=== PATIENT | female | born 1975 | race Caucasian/White ===

== ENCOUNTER 2016-12-15 02:50 | Emergency (ER) | payer MEDICAID ==
--- NOTE | 2016-12-15 03:31 | EDM.PDOC ---
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, does turn to right and left to [employer] 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 has had 12 fills of controlled meds in 2017 has been using Skelaxan 800 mg TID, ibuprofen 200 mg 4 tabs tid, warm soaks says she has gotten no relief and the pain is 10/10 yet repeated lies, sits and turns in exam room without limitation or evidence of pain has not used a back brace, not using APAP sleeps on a soft matress - Related Data Allergies/ADRs: Allergies Allergy/AdvReac Type Severity Reaction Status Date / Time No Known Allergies Allergy Verified 12/15/16 02:57 Home Meds: Home Meds buPROPion [Wellbutrin] 200 mg PO DAILY 08/21/13 [History] risperiDONE [Risperdal] 3 mg PO BEDTIME 08/21/13 [History] Escitalopram [Lexapro] 10 mg PO DAILY 01/08/16 [History] Past Medical History HEENT History: Reports: Allergic rhinitis, Sinusitis Cardiovascular History: Reports: None Respiratory History: Reports: Asthma Gastrointestinal History: Reports: GERD, Other (see below) Other Gastrointestinal History: intussuception 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: Dysfunctional uterine bleeding, Fibroids, Polycystic Ovaries Other OB/BYN History: ADDISON, LSO, CYSTOSCOPY Musculoskeletal History: Reports: Back pain, chronic, Other (see below) Other Musculoskeletal History: degenerative thoracic intervertebral disc Neurological History: Reports: None Psychiatric History: Reports: Anxiety, Depression Endocrine/Metabolic History: Reports: None Hematologic History: Reports: None Immunologic History: Reports: None Oncologic (Cancer) History: Reports: None Dermatologic History: Reports: None - Infectious Disease History Infectious Disease History: Reports: Chicken pox, Measles - Past Surgical History Head Surgeries/Procedures: Reports: None GI Surgical History: Reports: Cholecystectomy Female Surgical History: Reports: Breast implant, Hysterectomy, Salpingo- oophorectomy, Tubal ligation, Other (see below) Other Female Surgeries/Procedures: CERVICAL CRYOSURGERY Social & Family History - Family History Family Medical History: Noncontributory - Tobacco Use Smoking Status *Q: Current Every Day Smoker Years of Tobacco use: 25 Packs/Tins Daily: 1 Used Tobacco, but Quit: No Second Hand Smoke Exposure: Yes - Caffeine Use Caffeine Use: Reports: Coffee, Soda, Tea - Alcohol Use Days Per Week of Alcohol Use: 1 Number of Drinks Per Day: 2 Total Drinks Per Week: 2 - Recreational Drug Use Recreational Drug Use: No Drug Use in Last 12 Months: No ED ROS GENERAL - Review of Systems Review Of Systems: See Below Constitutional: Reports: no symptoms Respiratory: Reports: no symptoms Cardiovascular: Reports: No symptoms Endocrine: Reports: no symptoms GI/Abdominal: Reports: No symptoms : Reports: no symptoms Musculoskeletal: Reports: back pain Skin: Reports: no symptoms Neurological: Reports: no symptoms Psychiatric: Reports: No symptoms Hematologic/Lymphatic: Reports: no symptoms Immunologic: Reports: no symptoms ED EXAM, UPPER BACK/NECK PAIN - Physical Exam Exam: See Below Exam Limited By: No limitations General Appearance: alert, WD/WN, no apparent distress Head Exam: atraumatic, normocephalic Neck Exam: non-tender, full range of motion, normal alignment, normal inspection GI/Abdominal: soft, non tender, no distention Back Exam: other (good ROM, no spasm, slight tender over lower thoracic spine in midline, not localized, moves easily, lies and sits easily without hesitation ) Extremities: normal inspection, normal range of motion Neurologic: no motor/sensory deficits, alert, normal mood/affect, oriented x 3 Psychiatric: normal affect, normal mood Skin Exam: Normal color, Warm/dry Lymphatic: no adenopathy Course - Vital Signs Last Recorded V/S: Last Vital Signs Temp 36.5 C 12/15/16 02:59 Pulse 103 H 12/15/16 02:59 Resp 20 12/15/16 02:59 BP 141/76 H 12/15/16 02:59 Pulse Ox 99 12/15/16 02:59 Departure - Departure Time of Disposition: 03:34 Disposition: Home, Self-Care 01 Condition: good Clinical Impression: Overuse syndrome, Chronic back pain Instructions: Chronic Back Pain Forms: ED Department Discharge Additional Instructions: Continue with the ibuprofen 200 mg 4 tabs 3 times a day and the Skelaxin 800 mg 1 tab 3 times a day. Also take acetaminophen 325 mg 2 tabs 3-4 times a day. Using heating pad 15 minutes 4 times a day. Sleep on a firm mattress. Use a flexible back support while working and at home. Check back with Dr Guzman today or tomorrow.
== END 2016-12-15 03:45 | disposition home or self-care (01) ==
LOC: FB.ED 02:50
CPT/HCPCS: 99283

== ENCOUNTER 2017-04-09 08:47 | Emergency (ER) | payer MEDICAID ==
[2017-04-09 09:08] VITALS: BP 118/68
[2017-04-09] MEDS ORDERED: Ketorolac 30 MG/ML SDV IM ONE (09:22)
[2017-04-09] MEDS ORDERED: Acetaminophen/oxyCODONE 325-5 MG Tab PO ONE (09:22)
--- NOTE | 2017-04-09 09:41 | EDM.PDOC ---
ED HPI GENERAL MEDICAL PROBLEM - General Chief Complaint: Lower Extremity Injury/Pain Stated Complaint: LEFT HIP AND LEG PAIN Time Seen by Provider: 04/09/17 09:20 Source of Information: Reports: Patient, Old Records History Limitations: Reports: No Limitations - History of Present Illness INITIAL COMMENTS - FREE TEXT/NARRATIVE: 41 yo female here with left low back pain. Has a hx of chronic low back pain, but this is different. Says pain shoots down her left leg. Pain increases with coughing. 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 No incontinence. Had an MRI of her lumbar spine in that showed no bulging discs and only mild degen changes. Took ibuprofen today without relief. 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 Left Leg Pain Score (Numeric/FACES): 9 - Related Data Allergies Allergy/AdvReac Type Severity Reaction Status Date / Time No Known Allergies Allergy Verified 04/09/17 09:03 Home Meds: Home Meds buPROPion [Wellbutrin] 200 mg PO DAILY 08/21/13 [History] risperiDONE [Risperdal] 3 mg PO BEDTIME 08/21/13 [History] Escitalopram [Lexapro] 10 mg PO DAILY 01/08/16 [History] Acetaminophen/HYDROcodone [[place] 325-5 MG] 1 - 2 tab PO Q4H PRN #14 tab [Rx] Carisoprodol [Soma] 350 mg PO QID PRN #14 tab 04/09/17 [Rx] Gabapentin [Neurontin] 300 mg PO QID 04/09/17 [History] Prednisone [IJD: Prednisone] 20 mg PO BID #24 tab 04/09/17 [Rx] Past Medical History HEENT History: Reports: Allergic Rhinitis, Sinusitis Cardiovascular History: Reports: None Respiratory History: Reports: Asthma Gastrointestinal History: Reports: GERD, Other (See Below) Other Gastrointestinal History: intussuception 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: Dysfunctional 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 Bleeding, Fibroids, Polycystic Ovaries Other OB/BYN History: ADDISON, LSO, CYSTOSCOPY Musculoskeletal History: Reports: Back Pain, Chronic, Other (See Below) Other Musculoskeletal History: degenerative thoracic intervertebral disc Neurological History: Reports: None Psychiatric History: Reports: Anxiety, Depression Endocrine/Metabolic History: Reports: None Hematologic History: Reports: None Immunologic History: Reports: None Oncologic (Cancer) History: Reports: None Dermatologic History: Reports: None - Infectious Disease History Infectious Disease History: Reports: Chicken Pox, Measles - Past Surgical History Head Surgeries/Procedures: Reports: None Female Surgical History: Reports: Breast Implant, Hysterectomy, Salpingo- Oophorectomy, Tubal Ligation, Other (See Below) Social & Family History - Family History Family Medical History: Noncontributory - Tobacco Use Smoking Status *Q: Current Every Day Smoker Years of Tobacco use: 20 Packs/Tins Daily: 1 Used Tobacco, but Quit: No Second Hand Smoke Exposure: Yes - Caffeine Use Caffeine Use: Reports: Coffee, Soda, Tea - Alcohol Use Days Per Week of Alcohol Use: 1 Number of Drinks Per Day: 2 Total Drinks Per Week: 2 - Recreational Drug Use Recreational Drug Use: No Drug Use in Last 12 Months: No Review of Systems - Review of Systems Review Of Systems: See Below Constitutional: Reports: No Symptoms Eyes: Reports: No Symptoms Ears: Reports: No Symptoms Nose: Reports: No Symptoms Mouth/Throat: Reports: No Symptoms Respiratory: Reports: No Symptoms Cardiovascular: Reports: No Symptoms GI/Abdominal: Reports: No Symptoms Genitourinary: Reports: No Symptoms Musculoskeletal: Reports: Back Pain Skin: Reports: No Symptoms Neurological: Reports: Numbness (intermittently down her L leg.) ED EXAM, GENERAL - Physical Exam Exam: See Below Exam Limited By: No Limitations General Appearance: Alert, WD/WN, No Apparent Distress Respiratory/Chest: No Respiratory Distress Cardiovascular: Regular Rate, Rhythm Back Exam: Normal Inspection, Decreased Range of Motion, Paraspinal Tenderness ( L lumbar region, not tender over post spinous processes. ). No: Full Range of Motion, CVA Tenderness (R), CVA Tenderness (L) Extremities: Normal Inspection, Normal Range of Motion, Non-Tender, No Pedal Edema Neurological: Alert, Oriented, CN II-XII Intact, Normal Cognition, Normal Reflexes, No Motor/Sensory Deficits Psychiatric: Normal Affect, Normal Mood Skin Exam: Warm, Dry, Intact, Normal Color, No Rash Lymphatic: No Adenopathy Course - Vital Signs Text/Narrative:: Percocet 1 po, Toradol 30 mg IM Last Recorded V/S: Last Vital Signs Temp 36.3 C 04/09/17 09:07 Pulse 98 04/09/17 09:07 Resp 18 04/09/17 09:07 BP 118/68 04/09/17 09:07 Pulse Ox 97 04/09/17 09:07 - Orders/Labs/Meds Meds: Medications Discontinued Medications Generic Name Dose Route Start Last Admin Trade Name Freq PRN Reason Stop Dose Admin Ketorolac Tromethamine 30 mg 04/09/17 09:22 04/09/17 09:26 Toradol IM 04/09/17 09:23 30 mg ONETIME ONE Administration Oxycodone/Acetaminophen 1 tab 04/09/17 09:22 04/09/17 09:25 Percocet 325-5 Mg PO 04/09/17 09:23 1 tab ONETIME ONE Administration Departure - Departure Time of Disposition: 09:40 Disposition: Home, Self-Care 01 Condition: Fair Clinical Impression: Back pain with left-sided radiculopathy - Discharge Information Prescriptions: Acetaminophen/HYDROcodone [[place] 325-5 MG] 1 - 2 tab PO Q4H PRN #14 tab PRN Reason: Pain Carisoprodol [Soma] 350 mg PO QID PRN #14 tab PRN Reason: Pain Prednisone [IJD: Prednisone] 20 mg PO BID #24 tab Referrals: PCP,None [Primary Care Provider] - Forms: ED Department Discharge, Return to Work/School Form Care Plan Goals: Take ibuprofen 600 mg every 6 hrs with food. Take prednisone as directed until gone. Use the [place] and Soma as directed if pain persists. No driving when taking these latter 2 meds. No lifting, bending, or twisting. Recheck in the clinic later in the week.
== END 2017-04-09 09:34 | disposition home or self-care (01) ==
LOC: FB.ED 08:47
DX: M54.16 Radiculopathy, lumbar region (principal); J45.909 Unspecified asthma, uncomplicated; K21.9 Gastro-esophageal reflux disease without esophagitis; F17.210 Nicotine dependence, cigarettes, uncomplicated; F41.9 Anxiety disorder, unspecified; F32.9 Major depressive disorder, single episode, unspecified; Z79.899 Other long term (current) drug therapy
CPT/HCPCS: 96372; 99283; A9270; J1885

== ENCOUNTER 2017-06-02 03:31 | Emergency (ER) | payer BC, MEDICAID ==
[2017-06-02 03:54] VITALS: BP 141/98
[2017-06-02] MEDS ORDERED: Ketorolac 60 MG/2 ML SDV IM ONE (04:34)
--- NOTE | 2017-06-02 04:40 | EDM.PDOC ---
ED HPI GENERAL MEDICAL PROBLEM - General Chief Complaint: Upper Extremity Injury/Pain Stated Complaint: LEFT HAND INJURY Time Seen by Provider: 06/02/17 03:35 Source of Information: Reports: Patient, Family History Limitations: Reports: No Limitations - History of Present Illness INITIAL COMMENTS - FREE TEXT/NARRATIVE: 41 y.o.w.f. came to the ed after she "smashed" her left hand in a car door. Pt took Motrin at 6 pm last night, c/o pain at her left prox 2nd finger, has FROM. Pain is :shooting up her wrist". No other acute medical issues at this time. 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 Left Hand Pain Score (Numeric/FACES): 8 - Related Data Allergies Allergy/AdvReac Type Severity Reaction Status Date / Time No Known Allergies Allergy Verified 06/02/17 04:09 Home Meds: Home Meds buPROPion [Wellbutrin] 200 mg PO DAILY 08/21/13 [History] risperiDONE [Risperdal] 3 mg PO BEDTIME 08/21/13 [History] Escitalopram [Lexapro] 10 mg PO DAILY 01/08/16 [History] Acetaminophen/HYDROcodone [[place] 325-5 MG] 1 - 2 tab PO Q4H PRN #14 tab [Rx] Carisoprodol [Soma] 350 mg PO QID PRN #14 tab 04/09/17 [Rx] Gabapentin [Neurontin] 300 mg PO QID 04/09/17 [History] Prednisone [IJD: Prednisone] 20 mg PO BID #24 tab 04/09/17 [Rx] Past Medical History HEENT History: Reports: Allergic Rhinitis, Sinusitis Cardiovascular History: Reports: None Respiratory History: Reports: Asthma Gastrointestinal History: Reports: GERD, Other (See Below) Other Gastrointestinal History: intussuception 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: Dysfunctional 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 Bleeding, Fibroids, Polycystic Ovaries Other OB/BYN History: ADDISON, LSO, CYSTOSCOPY Musculoskeletal History: Reports: Back Pain, Chronic, Other (See Below) Other Musculoskeletal History: degenerative thoracic intervertebral disc Neurological History: Reports: None Psychiatric History: Reports: Anxiety, Depression Endocrine/Metabolic History: Reports: None Hematologic History: Reports: None Immunologic History: Reports: None Oncologic (Cancer) History: Reports: None Dermatologic History: Reports: None - Infectious Disease History Infectious Disease History: Reports: Chicken Pox, Measles - Past Surgical History Head Surgeries/Procedures: Reports: None Female Surgical History: Reports: Breast Implant, Hysterectomy, Salpingo- Oophorectomy, Tubal Ligation, Other (See Below) Social & Family History - Family History Family Medical History: Noncontributory - Tobacco Use Smoking Status *Q: Current Every Day Smoker Years of Tobacco use: 20 Packs/Tins Daily: 1 Used Tobacco, but Quit: No Second Hand Smoke Exposure: No - Caffeine Use Caffeine Use: Reports: Tea - Alcohol Use Days Per Week of Alcohol Use: 1 Number of Drinks Per Day: 2 Total Drinks Per Week: 2 - Recreational Drug Use Recreational Drug Use: No Drug Use in Last 12 Months: No Review of Systems - Review of Systems Review Of Systems: See Below Constitutional: Reports: No Symptoms Eyes: Reports: No Symptoms Ears: Reports: No Symptoms Nose: Reports: No Symptoms Mouth/Throat: Reports: No Symptoms Respiratory: Reports: No Symptoms Cardiovascular: Reports: No Symptoms GI/Abdominal: Reports: No Symptoms Genitourinary: Reports: No Symptoms Musculoskeletal: Reports: Hand Pain Skin: Reports: No Symptoms Neurological: Reports: No Symptoms Psychiatric: Reports: No Symptoms ED EXAM, GENERAL - Physical Exam Exam: See Below Exam Limited By: No Limitations General Appearance: Alert Eye Exam: Bilateral Eye: Normal Inspection Ears: Normal External Exam Ear Exam: Bilateral Ear: Auricle Normal Nose: Normal Inspection, Normal Mucosa Throat/Mouth: Normal Inspection, Normal Lips Head: Atraumatic, Normocephalic Neck: Normal Inspection, Supple Respiratory/Chest: No Respiratory Distress, Lungs Clear, Normal Breath Sounds Cardiovascular: Normal Peripheral Pulses, Regular Rate, Rhythm, No Edema Peripheral Pulses: 1+: Femoral (L), Femoral (R) GI/Abdominal: Normal Bowel Sounds, Soft, Non-Tender (Female) Exam: Deferred Rectal (Female) Exam: Deferred Back Exam: Normal Inspection Extremities: Normal Inspection, Normal Range of Motion, Normal Capillary Refill , Other (tender left 1st prox finger) Neurological: Alert, Oriented, CN II-XII Intact, Normal Cognition, Normal Gait Psychiatric: Normal Affect, Normal Mood Skin Exam: Warm, Dry, Intact, Normal Color, No Rash Lymphatic: No Adenopathy Course - Vital Signs Text/Narrative:: 41 y.o.w.f. came to the ed after she "smashed" her left hand in a car door. Pt took Motrin at 6 pm last night, c/o pain at her left prox 2nd finger, has FROM. Pain is :shooting up her wrist". No other acute medical issues at this time. PE: Tener left 2nc finger, FROM Imaging: Left hand X Ray neg Impression: Left hand sprain Tx: Ice, Toradol, splint. Reexam: Improved. 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 Plan: D/C with instructions. Last Recorded V/S: Last Vital Signs Temp 36.4 C 06/02/17 03:35 Pulse 87 06/02/17 03:35 Resp 18 06/02/17 03:35 BP 141/98 H 06/02/17 03:35 Pulse Ox 100 06/02/17 03:35 - Orders/Labs/Meds Orders: Active Orders 24 hr Category Date Time Status Cooling Warming Measures [RC] ASDIRECTED Care 06/02/17 04:35 Ordered Splinting [RC] ASDIRECTED Care 06/02/17 04:34 Ordered Hand Comp Min 3V Lt [CR] Stat Exams 06/02/17 03:42 Ordered Ice Bag [Ice Therapy] [OM.PC] Routine Oth 06/02/17 04:35 Ordered Meds: Medications Discontinued Medications Generic Name Dose Route Start Last Admin Trade Name Kishanq PRN Reason Stop Dose Admin Ketorolac Tromethamine 60 mg 06/02/17 04:34 06/02/17 04:43 Toradol IM 06/02/17 04:35 60 mg ONETIME ONE Administration Departure - Departure Time of Disposition: 04:41 Disposition: Home, Self-Care 01 Condition: Good Clinical Impression: Sprain of hand, left Qualifiers: Encounter type: initial encounter Qualified Code(s): S63.92XA - Sprain of unspecified part of left wrist and hand, initial encounter - Discharge Information Referrals: Del Meehan MD [Primary Care Provider] - Forms: ED Department Discharge, ED Return to Work/School Form Additional Instructions: Please apply the splint as recommended, ice, rest and elevation, Motrin for pain , please f/u with your PMD. Please come back to the ed if your symptoms get worse acutely. - My Orders Last 24 Hours: My Active Orders 06/02/17 03:42 Hand Comp Min 3V Lt [CR] Stat 06/02/17 04:34 Splinting [RC] ASDIRECTED 06/02/17 04:35 Cooling Warming Measures [RC] ASDIRECTED Ice Bag [Ice Therapy] [OM.PC] Routine - Assessment/Plan Last 24 Hours: My Active Orders 06/02/17 03:42 Hand Comp Min 3V Lt [CR] Stat 06/02/17 04:34 Splinting [RC] ASDIRECTED 06/02/17 04:35 Cooling Warming Measures [RC] ASDIRECTED Ice Bag [Ice Therapy] [OM.PC] Routine
--- NOTE | 2017-06-02 10:50 | CR ---
INDICATION: Trauma, slammed hand in door. Pain second PIP area. LEFT HAND: Three views of the left hand revealed no evidence of an acute fracture, dislocation, or other significant bone or joint abnormality. IMPRESSION: Normal left hand. MTDD
== END 2017-06-02 04:55 | disposition home or self-care (01) ==
LOC: FB.ED 03:31
DX: S63.92XA Sprain of unspecified part of left wrist and hand, initial encounter (principal); J45.909 Unspecified asthma, uncomplicated; F41.9 Anxiety disorder, unspecified; F32.9 Major depressive disorder, single episode, unspecified; F17.210 Nicotine dependence, cigarettes, uncomplicated; Z79.899 Other long term (current) drug therapy; W22.8XXA Striking against or struck by other objects, initial encounter
CPT/HCPCS: 73130; 96372; 99283; J1885

== ENCOUNTER 2017-10-26 12:42 | Emergency (ER) | payer BC ==
--- NOTE | 2017-10-26 16:29 | CT ---
INDICATION: Five months of sinus infection, pain and pressure. CT PARANASAL SINUSES: Serial contiguous 1.25-mm coronal images were obtained of the paranasal sinuses and revealed a small retention cyst in a left sphenoid air cell. There also appears to be a small retention cyst in a right-sided ethmoidal air cell. A left central frontal air cell shows evidence of a moderate retention cyst. The maxillary infundibula were patent. The maxillary sinuses were well aerated. The nasal cavity was patent. IMPRESSION: Essentially normal CT paranasal sinuses with a few retention cysts seen of small size. Total Exam DLP = 771.59 mGy-cm. MTDD
[2017-10-26 22:26] VITALS: BP 125/62
--- NOTE | 2017-10-27 11:37 | ER ---
DATE SEEN: 10/26/2017 TIME SEEN: The patient was seen at 1321 hours. HISTORY OF PRESENT ILLNESS: This is a 42-year-old single woman, 2, para 2, and chronic smoker, 20-ocss-dable, 1 pack per day, has onset of symptoms of sinusitis since May, had been treated approximately 5 times. She returns now with recurrence of sinusitis. She was started a week ago, on 10/18/2017, on Levaquin and prednisone, came back yesterday, seen by PA on 10/25/2017 and was diagnosed with the same with multiple symptoms, sinus pressure, sinus discomfort, discharge, pain, and was given prednisone, but the Levaquin was not refilled. PAST MEDICAL HISTORY: Significant for COPD, uses DuoNebs and has used Umeclidinium/Vilanterol in the past, which was too expensive. Continues to smoke. Alcohol is negative. She was noted to have COPD on 10/18/2017, could not afford Spiriva. She has generalized anxiety disorder, lumbar herniation, thoracic disc herniation. She has other long list of past medical history of duodenitis, constipation, arthritis, overuse syndrome, intussusception intestine, intermittent abdominal pain. REVIEW OF SYSTEMS: Otherwise negative. PHYSICAL EXAMINATION: VITAL SIGNS: Blood pressure 127/82, heart rate 126, respirations 18, oxygen saturation 97%, temperature is 36.6 degrees, pressure came down to 120/80s, heart rate wasn't rechecked. GENERAL: The patient is in tears. She is slightly overweight. CONSTITUTIONAL: She is well dressed, appropriate, and has moderate discomfort, complains of pain in the left frontal sinus. HEENT: PERRLA intact. Pharynx, no erythema. TMs, normal appearance. No retraction, minimal scarring. Moderate tenderness in left frontal sinus base and proximal ethmoid. Moderate turbinate swelling. The turbinates are in juxtaposition to the septum bilaterally, moderately enlarged. Minimal shiners. NECK: Minimal cervical adenopathy. No thyromegaly or masses in neck. No bruits. LUNGS: Clear superiorly, but she has rales, rhonchi, and sonorous rales/adventitious sounds throughout, more anterior than posterior. No retractions. ABDOMEN: Soft. No guarding. No abdominal discomfort. EXTREMITIES: Without edema. No vascular structure tenderness in lower extremities. The patient now has gone 5+ months with sinusitis, chronic sinusitis. CAT scan was performed. She has left frontal sinus membrane thickening. There is no suggestion of abscess or loculation of fluid. The turbinates are almost juxtapositioned to the septum. There is almost less than a millimeter of airspace noted and maxillary sinuses are clear. No lab was performed. ASSESSMENT: 1. Sinusitis secondary to chronic use of cigarettes and it is causing nasal turbinate swelling resulting in poor drainage of the frontal sinus and ethmoid sinuses. 2. Mild frontal and ethmoid sinusitis. 3. Excessive pain. The patient wants pain medicine for treatment. PLAN: 1. Use Tylenol 1000 mg, ibuprofen 600 mg. 2. I told the patient to stop smoking. 3. I told to the patient, as long as she smokes, she will have obstruction of the ducts that drain the sinuses, and when she stops smoking, she will get rid of her pain, and she has the choice whether she wants to continue smoking or stop smoking. 4. She was in tears and noted that "you know how hard that is to stop smoking". She apparently used Chantix before and cut her cigarette use down to 10 cigarettes a day. 5. I chose to motivate the patient, tell her why she is doing this. In terms of financial reasons, other reasons, and also her own general facial beauty that is affected by her cigarettes, and she has the choice whether she wanted to continue smoking or stop smoking. Plan, Chantix 0.5 mg daily for 3 days, then 0.5 mg b.i.d., a packet. She has 3 refills. 6. Also, we discussed using bupropion. She preferred not to use this, as she used that in the past. 7. Nicorette lozenges as directed, 0.4 mg, and also NicoDerm patch 21 mcg, 60 patches, refill as needed. I advised to immediately stop smoking, even as difficult as it is, and have her lozenges available, and even before she is out of bed, she is taking a lozenge. I chose not to have her smoke for another week, as she needs to invest in this process early on, even though it takes a while for Chantix to get a blood level to therapeutic level. Follow up with doctor in 2 to 3 weeks or earlier if worse. No antibiotics were provided. The patient has been adequately treated. My sense is that she will get over her sinusitis, as long as she stops smoking. /[id number] MELE/TISH ORTIZ
== END 2017-10-26 15:03 | disposition home or self-care (01) ==
LOC: FB.ED 12:42
DX: J32.1 Chronic frontal sinusitis (principal); J32.2 Chronic ethmoidal sinusitis; F17.210 Nicotine dependence, cigarettes, uncomplicated; Z71.6 Tobacco abuse counseling; J44.9 Chronic obstructive pulmonary disease, unspecified
CPT/HCPCS: 70486; 99283

== ENCOUNTER 2018-01-14 18:26 | Emergency (ER) | payer MEDICAID, OTHER ==
[2018-01-14] MEDS ORDERED: Ketorolac 60 MG/2 ML SDV IM ONE (18:41)
[2018-01-14] MEDS ORDERED: Iopamidol 755 Mg/ML 75 ML Bottle IV ONE (18:42)
[2018-01-14] MEDS ORDERED: Acetaminophen/oxyCODONE 325-5 MG Tab PO STA (19:49)
[2018-01-14] MEDS ORDERED: cefTRIAXone 1,000 MG VIAL IM ONE (19:49)
--- NOTE | 2018-01-14 20:38 | EDM.PDOC ---
ED HPI GENERAL MEDICAL PROBLEM - General Chief Complaint: Skin Complaint Stated Complaint: NECK PAIN AND SWELLING Time Seen by Provider: 01/14/18 18:39 Source of Information: Reports: Patient, Family History Limitations: Reports: No Limitations - History of Present Illness INITIAL COMMENTS - FREE TEXT/NARRATIVE: 42 y.o.w.f came to the ed due to mid lower post neck pain, swelling and warmness for several days. No trauma. 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 Upper Back Pain Score (Numeric/FACES): 8 - Related Data Allergies Allergy/AdvReac Type Severity Reaction Status Date / Time No Known Allergies Allergy Verified 01/14/18 18:37 Home Meds: Home Meds Gabapentin [Neurontin] 600 mg PO QID 04/09/17 [History] Albuterol/Ipratropium [DuoNeb 3.0-0.5 MG/3 ML] 3 ml Q12H PRN 10/26/17 [History] Acetaminophen/HYDROcodone [Gallup 325-5 MG] 1 tab PO Q4H PRN #6 tab 01/14/18 [Rx] Cephalexin [Keflex] 500 mg PO Q8H #30 cap 01/14/18 [Rx] Ibuprofen [Motrin] 600 mg PO Q8H PRN #30 tab 01/14/18 [Rx] Orphenadrine [Norflex] 100 mg PO QID PRN #20 tab.er 01/14/18 [Rx] Past Medical History HEENT History: Reports: Allergic Rhinitis, Sinusitis Other HEENT History: Pt has been diagnosed with Sinusitis a couple times since May 2017. 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: Reports: Dysfunctional Uterine Bleeding, Fibroids, Polycystic Ovaries Other OB/BYN History: ADDISON, LSO, CYSTOSCOPY Musculoskeletal History: Reports: Back Pain, Chronic, Other (See Below) Other Musculoskeletal History: degenerative thoracic intervertebral disc Neurological History: Reports: None Psychiatric History: Reports: Anxiety, Depression Endocrine/Metabolic History: Reports: None Hematologic History: Reports: None Immunologic History: Reports: None Oncologic (Cancer) History: Reports: None Dermatologic History: Reports: None - Infectious Disease History Infectious Disease History: Reports: Chicken Pox, Measles - Past Surgical History Head Surgeries/Procedures: Reports: None Female Surgical History: Reports: Breast Implant, Hysterectomy, Salpingo- Oophorectomy, Tubal Ligation, Other (See Below) Social & Family History - Family History Family Medical History: Noncontributory - Tobacco Use Smoking Status *Q: Current Every Day Smoker Years of Tobacco use: 20 Packs/Tins Daily: 0.5 Used Tobacco, but Quit: No Second Hand Smoke Exposure: No - Caffeine Use Caffeine Use: Reports: Coffee - Alcohol Use Days Per Week of Alcohol Use: 1 Number of Drinks Per Day: 2 Total Drinks Per Week: 2 - Recreational Drug Use Recreational Drug Use: No Drug Use in Last 12 Months: No ED ROS GENERAL - Review of Systems Review Of Systems: See Below Constitutional: Reports: No Symptoms HEENT: Reports: No Symptoms Respiratory: Reports: No Symptoms Cardiovascular: Reports: No Symptoms Endocrine: Reports: No Symptoms GI/Abdominal: Reports: No Symptoms : Reports: No Symptoms Musculoskeletal: Reports: Neck Pain, Shoulder Pain, Muscle Pain Skin: Reports: Rash (mid lowe neck) Neurological: Reports: No Symptoms Psychiatric: Reports: No Symptoms Hematologic/Lymphatic: Reports: No Symptoms Immunologic: Reports: No Symptoms ED EXAM, SKIN/RASH Exam: See Below Exam Limited By: No Limitations General Appearance: Alert, WD/WN, Mild Distress, Thin Eye Exam: Bilateral Eye: Normal Inspection Ears: Normal External Exam Nose: Normal Inspection Throat/Mouth: Normal Inspection, Normal Lips Head: Atraumatic, Normocephalic Neck: Limited Range of Motion, Tender Midline, Other (erythema at mid lower neck ) Respiratory/Chest: No Respiratory Distress, Lungs Clear, Normal Breath Sounds Cardiovascular: Normal Peripheral Pulses, Regular Rate, Rhythm, No Edema, No Gallop, No Rub Peripheral Pulses: 1+: Brachial (R) GI/Abdominal: Normal Bowel Sounds, Soft, Non-Tender (Female) Exam: Deferred Rectal (Female) Exam: Deferred Back Exam: Normal Inspection, Full Range of Motion Extremities: Normal Inspection, Normal Range of Motion, Non-Tender, No Pedal Edema Neurological: Alert, Oriented, CN II-XII Intact, Normal Cognition, Normal Gait Psychiatric: Normal Affect, Normal Mood Location, Skin: Neck (posterior) Characteristics: Confluent Associated features: Warmth, Tenderness (mid lower neck), Swelling Lymphatic: No Adenopathy Course - Vital Signs Text/Narrative:: 42 y.o.w.f came to the ed due to mid lower post neck pain, swelling and warmness for several days. No trauma. 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 BP 128/87 pulse 81 RR 14 Pulse ox 100% on RA, temp 36.8 PE: WNWD W F with tender swollen post lower nack Imaging: CT of Soft Tissue neck: Neg for abscess, poss Cellulitis Labs: CBC, BMP NL Ca 8.5 MCV 98.5 Impression: Post neck cellulitis, neck/shoulder sprain. Tx: Toradol, Norflex. Rocephine, ICE, Gallup Reexam: Improved Plan: D/C with instructions. Last Recorded V/S: Last Vital Signs Temp 36.5 C 01/14/18 18:39 Pulse 85 01/14/18 20:54 Resp 14 01/14/18 20:54 BP 131/89 01/14/18 20:54 Pulse Ox 100 01/14/18 20:54 - Orders/Labs/Meds Orders: Active Orders 24 hr Category Date Time Status Soft Tissue Neck w Cont [CT] Stat Exams 01/14/18 18:40 Taken CULTURE BLOOD [BC] Urgent Lab 01/14/18 18:45 Received CULTURE BLOOD [BC] Urgent Lab 01/14/18 18:50 Received Blood Culture x2 Reflex Set [OM.PC] Urgent Oth 01/14/18 18:38 Ordered Labs: Laboratory Tests 01/14/18 01/14/18 01/14/18 Range/Units 18:45 18:45 18:45 WBC 6.9 (4.5-12.0) X10-3/uL RBC 3.98 (3.23-5.20) x10(6)uL Hgb 13.6 (11.5-15.5) g/dL Hct 39.2 (30.0-51.3) % MCV 98.5 H (80-96) fL MCH 34.1 H (27.7-33.6) pg MCHC 34.6 (32.2-35.4) g/dL RDW 11.6 (11.5-15.5) % Plt Count 244 (125-369) X10(3)uL MPV 8.2 (7.4-10.4) fL Neut % (Auto) 68.1 (46-82) % Lymph % (Auto) 20.8 (13-37) % Reeves % (Auto) 8.1 (4-12) % Eos % (Auto) 2 (1.0-5.0) % Baso % (Auto) 1 (0-2) % Neut # (Auto) 4.6 (1.6-8.3) # Lymph # (Auto) 1.4 (0.6-5.0) # Reeves # (Auto) 0.6 (0.0-1.3) # Eos # (Auto) 0.2 (0.0-0.8) # Baso # (Auto) 0.1 (0.0-0.2) # Sodium 145 (135-145) mmol/L Potassium 3.6 (3.5-5.3) mmol/L Chloride 108 (100-110) mmol/L Carbon Dioxide 26 (21-32) mmol/L BUN 13 (7-18) mg/dL Creatinine 0.9 (0.55-1.02) mg/dL Est Cr Clr Drug Dosing 75.45 mL/min Estimated GFR (MDRD) > 60 (>60) BUN/Creatinine Ratio 14.4 (9-20) Glucose 96 (80-116) mg/dL Lactic Acid 2.1 (0.4-2.2) mmol/L Calcium 8.5 L (8.6-10.2) mg/dL Meds: Medications Discontinued Medications Generic Name Dose Route Start Last Admin Trade Name Freq PRN Reason Stop Dose Admin Ceftriaxone Sodium 1,000 mg 01/14/18 19:49 01/14/18 20:02 Rocephin IM 01/14/18 19:50 1,000 mg ONETIME ONE Administration Iopamidol 75 ml 01/14/18 18:42 01/14/18 19:05 Isovue-370 (76%) IV 01/14/18 18:43 75 ml ONETIME ONE Administration Ketorolac Tromethamine 60 mg 01/14/18 18:41 01/14/18 19:16 Toradol IM 01/14/18 18:42 60 mg ONETIME ONE Administration Orphenadrine Citrate 60 mg 01/14/18 19:47 01/14/18 19:54 Norflex IM 01/14/18 19:48 60 mg ONETIME STA Administration Oxycodone/Acetaminophen 1 tab 01/14/18 19:49 01/14/18 19:56 Percocet 325-5 Mg PO 01/14/18 19:50 1 tab ONETIME STA Administration Departure - Departure Time of Disposition: 20:38 Disposition: Home, Self-Care 01 Condition: Good Clinical Impression: Cellulitis, neck Sprain, neck Qualifiers: Encounter type: initial encounter Qualified Code(s): S13.9XXA - Sprain of joints and ligaments of unspecified parts of neck, initial encounter - Discharge Information Prescriptions: Acetaminophen/HYDROcodone [Gallup 325-5 MG] 1 tab PO Q4H PRN #6 tab PRN Reason: severe pain only Cephalexin [Keflex] 500 mg PO Q8H #30 cap Ibuprofen [Motrin] 600 mg PO Q8H PRN #30 tab PRN Reason: moderate pain Orphenadrine [Norflex] 100 mg PO QID PRN #20 tab.er PRN Reason: neck sprain Instructions: Acetaminophen; Hydrocodone tablets or capsules, Cellulitis, Adult , Ibuprofen tablets and capsules, Cervical Sprain, Cephalexin tablets or capsules, Orphenadrine tablets Referrals: Trace Mcelroy PA [Primary Care Provider] - Forms: ED Department Discharge Additional Instructions: Please apply warm heat to the affected area, please take the meds as recommended , would recommended neck massage. Please f/u with your PMD, please come back to the ed if your symptoms get worse acutely - My Orders Last 24 Hours: My Active Orders 01/14/18 18:38 Blood Culture x2 Reflex Set [OM.PC] Urgent 01/14/18 18:40 Soft Tissue Neck w Cont [CT] Stat 01/14/18 18:45 CULTURE BLOOD [BC] Urgent 01/14/18 18:50 CULTURE BLOOD [BC] Urgent - Assessment/Plan Last 24 Hours: My Active Orders 01/14/18 18:38 Blood Culture x2 Reflex Set [OM.PC] Urgent 01/14/18 18:40 Soft Tissue Neck w Cont [CT] Stat 01/14/18 18:45 CULTURE BLOOD [BC] Urgent 01/14/18 18:50 CULTURE BLOOD [BC] Urgent
[2018-01-14 20:55] VITALS: BP 131/89
--- OUTSIDE RECORDS SUMMARY | 2018-02-07 10:48 | XMSREPORT | Summary of Care ---
:1975 Author Organization [facility] Address [address] [place] [address] Phone Care Team Providers Name Role Phone Trace Mcelroy Primary Care Provider Provider, No Attributed RESOURCE Attributed Provider Unavailable Kalina Hay RN Unavailable Trace Mcelroy Insurance Required Reason for Referral Transitions of Care (Routine) Status Reason Specialty Diagnoses / Referred By Referred To Procedures Contact Contact New Request Patient Diagnoses Chronic thoracic spine pain [facility], [place] Preference MD Horacio [place] [address], Phone: [phone] Phone: Encounter Details Date Type Department Care Team Description 02/01/2018 Telephone [facility] RIT[facility]el Givens MD CLINIC [address] [place] [address] [place] [address] [phone] Allergies No Known Allergiesas of this encounter Medications Prescription Sig. Disp. Refills Start Date End Date Status hydrOXYzine (ATARAX) TAKE 1 TABLET 120 tablet 0 03/10/2016 Active 25 mg tablet (25MG TOTAL) BY MOUTH 4 TIMES A DAY NEEDED FOR ANXIETY albuterol HFA (PROAIR INHALE 2 PUFFS 8.5 g 11 01/24/2017 Active HFA) 108 (90 BASE) ORALLY EVERY MCG/ACT 4-6 HOURS inhalerIndications: NEEDED FOR Bronchitis WHEEZING OR COUGH. SHAKE WELL BEFORE USING. risperiDONE Take 1 tablet 90 tablet 0 02/15/2017 Active (RISPERDAL) 3 mg (3 mg) by mouth tabletIndications: every night at Anxiety bedtime methocarbamol TAKE 1 TABLET 90 tablet 3 05/23/2017 Active (ROBAXIN) 500 mg (500MG) BY tabletIndications: MOUTH EVERY 8 Chronic midline HOURS NEEDED thoracic back pain FOR MUSCLE SPASMS GENERIC FOR ROBAXIN diclofenac (CATAFLAM) Take 50 mg by 06/02/2017 Active 50 mg tablet mouth 2 times a day Pseudoephedrine-Napro Take 1 tablet Active xen Na (SUDAFED SINUS by mouth 1 time & PAIN 12 HOUR PO) a day as needed gabapentin TAKE 2 CAPSULES 240 capsule 1 10/06/2017 Active (NEURONTIN) 300 mg (600MG) BY capsuleIndications: MOUTH 4 TIMES A Chronic low back DAY pain, unspecified back pain laterality, with sciatica presence unspecified fluticasone (FLONASE) [place] 1 spray 1 Bottle 0 10/27/2017 11/01/2018 Active 50 mcg/spray nasal into each sprayIndications: nostril 2 times Sinus pressure a day benzonatate TAKE 1 CAPSULE 42 capsule 1 10/27/2017 Active (TESSALON) 200 MG (200 MG) BY capsuleIndications: MOUTH 3 TIMES A Bronchitis DAY NEEDED FOR COUGH GENERIC TESSALON baclofen (LIORESAL) TAKE 1/2 TO 1 90 tablet 11 12/26/2017 Active 10 mg TABLET UP TO 3 tabletIndications: TIMES A DAY Thoracic degenerative NEEDED FOR PAIN disc disease as of this encounter Active Problems Problem Noted Date Chronic thoracic spine pain 12/30/2016 Pain medication agreement broken 01/27/2015 Overview: Letter sent by Dr Meehan 01/27/15 TOA (tubo-ovarian abscess) 03/31/2014 Lumbar back pain 03/25/2013 Tobacco abuse 01/29/2013 as of this encounter Resolved Problems Problem Noted Date Resolved Date Pelvic pain in female 10/29/2014 01/12/2015 as of this encounter Immunizations Name Dates Previously Given Next Due FLU VACCINE TRIVALENT SINGLE DOSE(Fluvirin,Afluria) 08/11/2013, 07/31/2012 FLU VACCINE 07/07/2014 MULTIDOSE(3yr+Fluzone,6MO+Flulaval,18YR+AFLURIA) FLU VACCINE SINGLE 06/28/2016 DOSE(3YR+Fluarix/Fluzone;6MO+Flulaval;18yr+Afluria) TDAP 04/27/2015 as of this encounter Social History Tobacco Use Types Packs/Day Years Used Date Current Every Day Smoker Cigarettes 1 20 Smokeless Tobacco: Never Used Comments: Refused Alcohol Use Drinks/Week oz/Week Comments Yes 0 Standard drinks or equivalent 0.0 socially 6 pk a week Sex Assigned at Date Recorded Not on file as of this encounter Last Filed Vital Signs Not on filein this encounter Functional Status Functional Status Response Date of Assessment Is the person deaf or does he/she have serious difficulty No 01/12/2016 hearing? Is this person blind or does he/she have difficulty No 01/12/2016 seeing even when wearing glasses? Do you have difficulty with walking, balance, climbing No 12/29/2016 stairs, or had a fall in the last 3 months? Does the patient have difficulty dressing or bathing? No 01/12/2016 Because of a physical, mental, or emotional condition; No 01/12/2016 does this person have difficulty doing errands alone such as visiting a doctor's office or shopping? Cognitive Status Response Date of Assessment Because of a physical, mental, or emotional condition; No 01/12/2016 does this person have serious difficulty concentrating, remembering, or making decisions? as of this encounter Plan of Treatment Date Type Specialty Care Team Description 02/27/2018 Office Visit Pain Stacey Tejada MD [address] [place] [address] [phone] Name Priority Associated Diagnoses Order Schedule CLINIC REFERRAL WALK-IN/ER Routine Chronic thoracic spine pain Ordered: NON ONE CHART Health Maintenance Due Date Last Done Comments HIV One Time Screening Ages 1989 15-65 Pneumococcal 19-64yr Medium 1993 Risk(Category 1) (1 of 1 - PPSV23) Lipid Screening 2014 Pap Smear 12/18/2016 12/18/2013 Mammogram 02/17/2018 09/18/2015 Postponed from 09/18/2016 (Patient Refused) Influenza Vaccine (Season 07/09/2018 06/28/2016, 07/07/2014, Ended) 08/11/2013, Additional history exists Tetanus Vaccine 04/27/2025 04/27/2015 as of this encounter Results Not on filein this encounter Visit Diagnoses Diagnosis Chronic thoracic spine pain - Primary Pain in thoracic spine in this encounter
== END 2018-01-14 20:51 | disposition home or self-care (01) ==
LOC: FB.ED 18:26
DX: L03.221 Cellulitis of neck (principal); S13.9XXA Sprain of joints and ligaments of unspecified parts of neck, initial encounter; F17.210 Nicotine dependence, cigarettes, uncomplicated; J44.9 Chronic obstructive pulmonary disease, unspecified; Z79.899 Other long term (current) drug therapy; W00.0XXA Fall on same level due to ice and snow, initial encounter
CPT/HCPCS: 36415; 70491; 80048; 83605; 85025; 87040; 96372; 99284; A9270; J0696; J1885; J2360; Q9967

== ENCOUNTER 2018-02-12 10:42 | Emergency (ER) | payer MEDICAID ==
[2018-02-12] MEDS ORDERED: Ondansetron 4 MG Tab.DIS PO ONE (13:00)
[2018-02-12] MEDS ORDERED: Ketorolac 60 MG/2 ML SDV IM ONE (13:00)
[2018-02-12] MEDS ORDERED: Metoclopramide 10 MG Tab PO PRN (13:02)
--- NOTE | 2018-02-12 13:02 | EDM.PDOC ---
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, 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 felt fine last night no sob, no CP - Related Data Allergies Allergy/AdvReac Type Severity Reaction Status Date / Time No Known Allergies Allergy Verified 02/12/18 11:12 Home Meds: Home Meds Gabapentin [Neurontin] 600 mg PO TID 04/09/17 [History] Albuterol/Ipratropium [DuoNeb 3.0-0.5 MG/3 ML] 3 ml Q12H PRN 10/26/17 [History] Ibuprofen [Motrin] 600 mg PO Q8H PRN #30 tab 01/14/18 [Rx] Baclofen 20 mg PO QID PRN 02/12/18 [History] Indomethacin 25 mg PO Q6HR PRN 02/12/18 [History] Past Medical History HEENT History: Reports: Allergic Rhinitis, Sinusitis Other HEENT History: Pt has been diagnosed with Sinusitis a couple times since May 2017. 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: Dysfunctional Uterine Bleeding, Fibroids, Polycystic Ovaries, Other OB/BYN History: ADDISON, LSO, CYSTOSCOPY, Musculoskeletal History: Reports: Back Pain, Chronic, Other (See Below) Other Musculoskeletal History: degenerative thoracic intervertebral disc Neurological History: Reports: None Psychiatric History: Reports: Anxiety, Depression Endocrine/Metabolic History: Reports: None Hematologic History: Reports: None Immunologic History: Reports: None Oncologic (Cancer) History: Reports: None Dermatologic History: Reports: None - Infectious Disease History Infectious Disease History: Reports: Chicken Pox, Measles - Past Surgical History Head Surgeries/Procedures: Reports: None Female Surgical History: Reports: Breast Implant, Hysterectomy, Salpingo- Oophorectomy, Tubal Ligation, Other (See Below) Social & Family History - Family History Family Medical History: Noncontributory - Tobacco Use Smoking Status *Q: Current Every Day Smoker Years of Tobacco use: 20 Packs/Tins Daily: 0.5 Used Tobacco, but Quit: No Second Hand Smoke Exposure: No - Caffeine Use Caffeine Use: Reports: Coffee, Tea - Alcohol Use Days Per Week of Alcohol Use: 3 Number of Drinks Per Day: 3 Total Drinks Per Week: 9 - Recreational Drug Use Recreational Drug Use: No Drug Use in Last 12 Months: No ED ROS GENERAL - Review of Systems Review Of Systems: See Below Constitutional: Reports: No Symptoms HEENT: Reports: No Symptoms Respiratory: Reports: No Symptoms Cardiovascular: Reports: No Symptoms Endocrine: Reports: No Symptoms GI/Abdominal: Reports: Nausea, Vomiting. Denies: Abdominal Pain : Reports: No Symptoms Musculoskeletal: Reports: No Symptoms Skin: Reports: No Symptoms Neurological: Reports: No Symptoms Psychiatric: Reports: No Symptoms Hematologic/Lymphatic: Reports: No Symptoms Immunologic: Reports: No Symptoms - Physical Exam Exam: See Below Exam Limited By: No Limitations General Appearance: Alert, WD/WN, No Apparent Distress Ears: Normal External Exam, Hearing Grossly Normal Nose: Normal Inspection, Normal Mucosa, No Blood Throat/Mouth: Normal Inspection, Normal Lips, Normal Teeth, Normal Gums, Normal Oropharynx, Normal Voice, No Airway Compromise Head Exam: Atraumatic, Normocephalic Neck: Normal Inspection, Supple, Non-Tender, Full Range of Motion Respiratory/Chest: No Respiratory Distress, Lungs Clear, Normal Breath Sounds, No Accessory Muscle Use, Chest Non-Tender Cardiovascular: Regular Rate, Rhythm, No Edema, No Gallop, No Murmur, No Rub GI/Abdominal: Normal Bowel Sounds, Soft, Non-Tender, No Organomegaly, No Distention, No Mass Neuro Exam (Abbreviated): Alert, Oriented, CN II-XII Intact, Normal Cognition, No Motor/Sensory Deficits Back Exam: Normal Inspection, Full Range of Motion, NT Extremities: Normal Inspection, Normal Range of Motion, Non-Tender, No Pedal Edema Psychiatric: Anxious Skin Exam: Warm, Dry, Intact, Normal Color, No Rash Course - Vital Signs Last Recorded V/S: Last Vital Signs Temp 36.7 C 02/12/18 10:54 Pulse 88 02/12/18 10:54 Resp 18 02/12/18 11:17 BP 139/93 H 02/12/18 11:17 Pulse Ox 98 02/12/18 11:17 - Orders/Labs/Meds Orders: Active Orders 24 hr Category Date Time Status Metoclopramide [Reglan] Med 02/12/18 13:02 Ordered 10 mg PO Q6H PRN Meds: Medications Discontinued Medications Generic Name Dose Route Start Last Admin Trade Name Freq PRN Reason Stop Dose Admin Ketorolac Tromethamine 60 mg 02/12/18 13:00 Toradol IM 02/12/18 13:01 ONETIME ONE Ondansetron HCl 4 mg 02/12/18 13:00 Zofran Odt PO 02/12/18 13:01 ONETIME ONE Departure - Departure Time of Disposition: 13:06 Disposition: Home, Self-Care 01 Condition: Good Clinical Impression: Nausea, Elevated blood pressure reading, Tension-type headache - Discharge Information Instructions: Nausea, Adult, Hypertension, Tension Headache, [id number] Referrals: Trace Mcelroy PA [Primary Care Provider] - Forms: ED Department Discharge Additional Instructions: Blood pressure can fluctuate from one hour to the next depending on circumstances (illness, ED visit, stress, etc). Your average blood pressure over time is used to determine when someone may need terminal superintendent medication. For nausea, take metoclopramide 10 mg 1 tab every 6 hours as needed. Increase fluids. For headache, take ibuprofen 200 mg 3 tabs at supper and bedtime tonight. May take 4 times tomorrow, if needed. Rest. No work today. See your doctor in 2-3 days. - My Orders Last 24 Hours: My Active Orders 02/12/18 13:02 Metoclopramide [Reglan] 10 mg PO Q6H PRN - Assessment/Plan Last 24 Hours: My Active Orders 02/12/18 13:02 Metoclopramide [Reglan] 10 mg PO Q6H PRN
[2018-02-13 15:31] VITALS: BP 131/103
== END 2018-02-12 13:29 | disposition home or self-care (01) ==
LOC: FB.ED 10:42
DX: I10 Essential (primary) hypertension (principal); G44.209 Tension-type headache, unspecified, not intractable; J44.9 Chronic obstructive pulmonary disease, unspecified; K21.9 Gastro-esophageal reflux disease without esophagitis; F41.9 Anxiety disorder, unspecified; F32.9 Major depressive disorder, single episode, unspecified; Z79.899 Other long term (current) drug therapy
CPT/HCPCS: 96372; 99283; A9270-GY; J1885

== ENCOUNTER 2018-02-20 21:48 | Inpatient (IN) | payer MEDICAID ==
[2018-02-20] MEDS ORDERED: Sodium Chloride 0.9% 1,000 ML IV SCH (22:15)
[2018-02-20 23:04] LABS: ACETAMINOPHEN < 2 ug/mL (10-30)
[2018-02-21] MEDS ORDERED: Metoprolol Tartrate 5 MG/5 ML SDV IVPUSH ONE (03:41)
[2018-02-21] MEDS: Sodium Chloride 0.9% 1,000 ML IV SCH ×2 (03:44→14:17)
[2018-02-21] MEDS ORDERED: Ondansetron 4 MG/2 ML SDV IVPUSH ONE (04:52)
[2018-02-21] MEDS ORDERED: Pantoprazole 40 MG Vial IVPUSH ONE (04:53)
[2018-02-21] MEDS: Metoprolol Tartrate 5 MG/5 ML SDV IVPUSH ONE ×2 (04:57→06:40)
[2018-02-21] MEDS ORDERED: Enoxaparin 30 MG/0.3 ML Syringe SUBCUT SCH (07:15)
[2018-02-21] MEDS ORDERED: Enoxaparin 40 MG/0.4 ML Syringe SUBCUT SCH (07:30)
[2018-02-21] MEDS ORDERED: Pantoprazole 80 MG in Sodium Chloride 0.9% 100 ML IV ONE (07:30)
--- NOTE | 2018-02-21 08:03 | PCM.HP ---
H&P History of Present Illness - General Date of Service: 02/21/18 Admit Problem/Dx: Admission Diagnosis/Problem Admission Diagnosis/Problem Drug overdose Source of Information: Family, Old Records, Other (ER nurse and ER doctor) History Limitations: Reports: Altered Mental Status - History of Present Illness Initial Comments - Free Text/Narative: This a 42-year-old female patient that's been admitted for overdose. Right now she responds to voice only by morning. She will not wake up and talk. History is per ER doctor and ER nurse. Apparently she came in with her boyfriend shouting yesterday. She had taken 28 baclofen. She received a prescription for 120 and there is 92 gone apparently according to the nurse. She also drank a large bottle of vodka. And she was here she was less responsive and only could be aroused and then she'll wake up and vomited. Wording to the nurse she has a history of anxiety depression. I do know this patient from the past. I have [facility] open which she has some medical records she sees a pain clinic. She also now sees Trace Mcelroy at [facility]. Does have a long history of thoracic back pain. - Related Data Allergies/Adverse Reactions: Allergies Allergy/AdvReac Type Severity Reaction Status Date / Time No Known Allergies Allergy Verified 02/20/18 22:07 Home Medications: Home Meds . [Unable to Verify Home Med List] 02/21/18 [History] Past Medical History HEENT History: Reports: Allergic Rhinitis, Sinusitis Other HEENT History: Pt has been diagnosed with Sinusitis a couple times since May 2017. Cardiovascular History: Reports: Hypertension Respiratory History: Reports: Asthma, COPD Gastrointestinal History: Reports: GERD, Other (See Below) Other Gastrointestinal History: intussuception Genitourinary History: Reports: None [employer] History: Reports: Dysfunctional Uterine Bleeding, Fibroids, Polycystic Ovaries, Other OB/BYN History: ADDISON, LSO, CYSTOSCOPY, Musculoskeletal History: Reports: Back Pain, Chronic, Other (See Below) Other Musculoskeletal History: degenerative thoracic intervertebral disc Neurological History: Reports: None Psychiatric History: Reports: Anxiety, Depression Endocrine/Metabolic History: Reports: None Hematologic History: Reports: None Immunologic History: Reports: None Oncologic (Cancer) History: Reports: None Dermatologic History: Reports: None - Infectious Disease History Infectious Disease History: Reports: Chicken Pox, Measles - Past Surgical History Head Surgeries/Procedures: Reports: None Female Surgical History: Reports: Breast Implant, Hysterectomy, Salpingo- Oophorectomy, Tubal Ligation, Other (See Below) Social & Family History - Family History Family Medical History: Noncontributory - Tobacco Use Smoking Status *Q: Current Every Day Smoker Years of Tobacco use: 27 Packs/Tins Daily: 0.5 - Caffeine Use Caffeine Use: Reports: Coffee, Soda - Alcohol Use Days Per Week of Alcohol Use: 7 Number of Drinks Per Day: 1 Total Drinks Per Week: 7 - Recreational Drug Use Recreational Drug Use: No H&P Review of Systems - Review of Systems: Review Of Systems: Unable To Obtain Exam - Exam Exam: See Below - Vital Signs Vital Signs: Last Vital Signs Temp 98.6 F 02/21/18 07:10 Pulse 68 02/21/18 07:10 Resp 12 02/21/18 07:10 BP 151/96 H 02/21/18 07:10 Pulse Ox 97 02/21/18 07:10 Weight: 140 lb - Exam General: Sedated. No: Alert, Oriented, Cooperative HEENT: Conjunctiva Clear, Posterior Pharynx Clear, TMs Clear, Other (Pupils equal and reactive to light.) Neck: Supple, Trachea Midline Lungs: Clear to Auscultation, Normal Respiratory Effort. No: Crackles, Rales, Rhonchi Cardiovascular: Regular Rate, Regular Rhythm. No: Systolic Murmur, Diastolic Murmur GI/Abdominal Exam: Normal Bowel Sounds, Soft, Non-Tender. No: No Distention, No Abnormal Bruit Extremities: Normal Inspection, Non-Tender, No Pedal Edema Skin: Warm, Dry, Intact Neurological: Normal Tone. No: Normal Speech Neuro Extensive - Mental Status: No: Alert, Oriented x3, Normal Mood/Affect, Normal Cognition, Memory Intact Neuro Extensive - Motor, Sensory, Reflexes: No: Normal Gait Psychiatric: No: Alert, Normal Affect, Normal Mood - Patient Data Lab Results Last 24 hrs: Laboratory Results - last 24 hr 02/20/18 02/20/18 02/20/18 Range/Units 22:35 22:35 22:35 WBC (4.5-12.0) X10-3/uL RBC (3.23-5.20) x10(6)uL Hgb (11.5-15.5) g/dL Hct (30.0-51.3) % MCV (80-96) fL MCH (27.7-33.6) pg MCHC (32.2-35.4) g/dL RDW (11.5-15.5) % Plt Count (125-369) X10(3)uL MPV (7.4-10.4) fL Neut % (Auto) (46-82) % Lymph % (Auto) (13-37) % [place] % (Auto) (4-12) % Eos % (Auto) (1.0-5.0) % Baso % (Auto) (0-2) % Neut # (Auto) (1.6-8.3) # Lymph # (Auto) (0.6-5.0) # Cassia # (Auto) (0.0-1.3) # Eos # (Auto) (0.0-0.8) # Baso # (Auto) (0.0-0.2) # Sodium 139 (135-145) mmol/L Potassium 4.1 (3.5-5.3) mmol/L Chloride 103 D (100-110) mmol/L Carbon Dioxide 25 (21-32) mmol/L BUN 26 H D (7-18) mg/dL Creatinine 1.0 (0.55-1.02) mg/dL Est Cr Clr Drug Dosing TNP Estimated GFR (MDRD) > 60 (>60) BUN/Creatinine Ratio 26.0 H (9-20) Glucose 138 H (80-116) mg/dL Calcium 9.0 (8.6-10.2) mg/dL Total Bilirubin 0.3 (0.1-1.3) mg/dL AST 13 (5-25) IU/L ALT 21 (12-36) U/L Alkaline Phosphatase 107 (56-112) IU/L Total Protein 7.0 (6.0-8.0) g/dL Albumin 4.2 (3.5-5.2) g/dL Globulin 2.8 g/dL Albumin/Globulin Ratio 1.5 Salicylates 6.6 (2.8-20.0) mg/dL Acetaminophen < 2 L (10-30) ug/mL Ethyl Alcohol < 0.03 (<0.03) % 05/15/18 05/16/18 05/16/18 Range/Units 22:35 05:05 05:05 WBC 10.8 (4.5-12.0) X10-3/uL RBC 4.14 (3.23-5.20) x10(6)uL Hgb 14.0 (11.5-15.5) g/dL Hct 40.1 (30.0-51.3) % MCV 96.9 H (80-96) fL MCH 33.8 H (27.7-33.6) pg MCHC 34.9 (32.2-35.4) g/dL RDW 11.4 L (11.5-15.5) % Plt Count 334 (125-369) X10(3)uL MPV 7.6 (7.4-10.4) fL Neut % (Auto) 78.3 (46-82) % Lymph % (Auto) 15.2 (13-37) % Cassia % (Auto) 5.1 (4-12) % Eos % (Auto) 0 L (1.0-5.0) % Baso % (Auto) 1 (0-2) % Neut # (Auto) 8.6 H (1.6-8.3) # Lymph # (Auto) 1.6 (0.6-5.0) # Cassia # (Auto) 0.5 (0.0-1.3) # Eos # (Auto) 0.0 (0.0-0.8) # Baso # (Auto) 0.1 (0.0-0.2) # Sodium 141 (135-145) mmol/L Potassium 4.0 (3.5-5.3) mmol/L Chloride 105 (100-110) mmol/L Carbon Dioxide 28 (21-32) mmol/L BUN 22 H (7-18) mg/dL Creatinine 0.8 (0.55-1.02) mg/dL Est Cr Clr Drug Dosing 88.18 Estimated GFR (MDRD) > 60 (>60) BUN/Creatinine Ratio 27.5 H (9-20) Glucose 122 H (80-116) mg/dL Calcium 8.5 L (8.6-10.2) mg/dL Total Bilirubin (0.1-1.3) mg/dL AST (5-25) IU/L ALT (12-36) U/L Alkaline Phosphatase (56-112) IU/L Total Protein (6.0-8.0) g/dL Albumin (3.5-5.2) g/dL Globulin g/dL Albumin/Globulin Ratio Salicylates 5.7 (2.8-20.0) mg/dL Acetaminophen (10-30) ug/mL Ethyl Alcohol (<0.03) % Result Diagrams: 02/20/18 22:35 02/21/18 05:05 Davi Results Last 24 hrs: Microbiology 02/21/18 06:40 Gastric Occult Blood - Final Gastric Aspirate - Problem List (1) Overdose SNOMED Code(s): 73184322 ICD Code: T50.901A - POISONING BY UNSP DRUG/MEDS/BIOL SUBST, ACCIDENTAL, INIT Status: Acute Current Visit: Yes (2) Alcohol intoxication SNOMED Code(s): 15370873 ICD Code: F10.929 - ALCOHOL USE, UNSPECIFIED WITH INTOXICATION, UNSPECIFIED Status: Acute Current Visit: Yes Problem List Initiated/Reviewed/Updated: Yes Orders Last 24hrs: Active Orders 24 hr Category Date Time Status Patient Status [ADT] Routine ADT 02/21/18 07:01 Active Notify Provider Vital Signs [RC] ASDIRECTED Care 02/21/18 07:04 Active Oxygen Therapy [RC] PRN Care 02/21/18 07:01 Active VTE/DVT Education [RC] Per Unit Routine Care 02/21/18 07:01 Active Vital Signs [RC] Q4H Care 02/21/18 07:01 Active Nothing per Oral Now Diet [DIET] Diet 02/21/18 Breakfast Ordered Head wo Cont [CT] Stat Exams 02/21/18 07:21 Ordered DRUG SCREEN, URINE ALERE [URCHEM] Urgent Lab 02/21/18 Ordered Enoxaparin [Lovenox] Med 02/21/18 07:30 Active 40 mg SUBCUT Q24H Sodium Chloride 0.9% [Normal Saline] 1,000 ml Med 02/20/18 22:15 Active IV ASDIRECTED Sodium Chloride 0.9% [Normal Saline] 1,000 ml Med 02/21/18 03:45 Active IV ASDIRECTED Resuscitation Status Routine Resus Stat 02/21/18 07:01 Ordered EKG 12 Lead [EK] Routine Ther 02/20/18 22:14 Ordered Medication Orders Enoxaparin Sodium (Lovenox) 40 mg SUBCUT Q24H [facility] Sodium Chloride (Normal Saline) 1,000 mls @ 500 mls/hr IV ASDIRECTED [facility] Last Admin: 02/21/18 00:25 Dose: 500 mls/hr Sodium Chloride (Normal Saline) 1,000 mls @ 100 mls/hr IV ASDIRECTED [facility] Last Admin: 02/21/18 03:44 Dose: 100 mls/hr Assessment/Plan Comment:: 1. Admit to ICU 2. Full code. 3. Verbal report was given to me by the ER doc from poison control. Things to watch for bradycardia, hypotension and sedation. We'll monitor in the ICU and treat accordingly for abnormal vital signs. 4. Nothing by mouth. 5. Up with assist if she starts to wake up 6 Hold home medications for now. 7. Reassessed the patient when she starts to wake up again.
[2018-02-21] MEDS ORDERED: Ondansetron 4 MG/2 ML SDV IVPUSH PRN (09:23)
[2018-02-21] MEDS ORDERED: Nicotine 21 MG/24 Hr Patch TRDERM SCH (17:30)
--- NOTE | 2018-02-21 19:24 | PCM.PN ---
- General Info Date of Service: 02/21/18 Admission Dx/Problem (Free Text): Patient is now awake. She is very hyper and has lots of flights of ideas. She's talks about her back pain, her stress at home with her kids are steady and other. She states she has ADHD in the past has been treated she complains that her back pain it is not treated enough. She denies depression, suicidal ideation. Seizures is really stressed. - Patient Data Vitals - Most Recent: Last Vital Signs Temp 97.4 F 02/21/18 14:57 Pulse 93 02/21/18 16:00 Resp 16 02/21/18 16:00 BP 139/83 02/21/18 15:22 Pulse Ox 97 02/21/18 16:00 Weight - Most Recent: 142 lb 10.225 oz I&O - Last 24 Hours: Intake & Output 02/21/18 02/21/18 02/21/18 06:59 14:59 22:59 Intake Total 1040 800 Output Total 2400 Balance -1360 800 Lab Results Last 24 Hours: Laboratory Results - last 24 hr 02/20/18 02/20/18 02/20/18 Range/Units 22:35 22:35 22:35 WBC (4.5-12.0) X10-3/uL RBC (3.23-5.20) x10(6)uL Hgb (11.5-15.5) g/dL Hct (30.0-51.3) % MCV (80-96) fL MCH (27.7-33.6) pg MCHC (32.2-35.4) g/dL RDW (11.5-15.5) % Plt Count (125-369) X10(3)uL MPV (7.4-10.4) fL Neut % (Auto) (46-82) % Lymph % (Auto) (13-37) % [place] % (Auto) (4-12) % Eos % (Auto) (1.0-5.0) % Baso % (Auto) (0-2) % Neut # (Auto) (1.6-8.3) # Lymph # (Auto) (0.6-5.0) # [place] # (Auto) (0.0-1.3) # Eos # (Auto) (0.0-0.8) # Baso # (Auto) (0.0-0.2) # Sodium 139 (135-145) mmol/L Potassium 4.1 (3.5-5.3) mmol/L Chloride 103 D (100-110) mmol/L Carbon Dioxide 25 (21-32) mmol/L BUN 26 H D (7-18) mg/dL Creatinine 1.0 (0.55-1.02) mg/dL Est Cr Clr Drug Dosing TNP Estimated GFR (MDRD) > 60 (>60) BUN/Creatinine Ratio 26.0 H (9-20) Glucose 138 H (80-116) mg/dL Calcium 9.0 (8.6-10.2) mg/dL Total Bilirubin 0.3 (0.1-1.3) mg/dL AST 13 (5-25) IU/L ALT 21 (12-36) U/L Alkaline Phosphatase 107 (56-112) IU/L Total Protein 7.0 (6.0-8.0) g/dL Albumin 4.2 (3.5-5.2) g/dL Globulin 2.8 g/dL Albumin/Globulin Ratio 1.5 Salicylates 6.6 (2.8-20.0) mg/dL Urine Opiates Screen (NEGATIVE) Ur Oxycodone Screen (NEGATIVE) Ur Propoxyphene Screen (NEGATIVE) Acetaminophen < 2 L (10-30) ug/mL Ur Barbituates Screen (NEGATIVE) Ur Tricyclics Screen (NEGATIVE) Ur Phencyclidine Scrn (NEGATIVE) Ur Amphetamine Screen (NEGATIVE) Urine MDMA Screen (NEGATIVE) U Benzodiazepines Scrn (NEGATIVE) U Cocaine Metab Screen (NEGATIVE) U Marijuana (THC) Screen (NEGATIVE) Ethyl Alcohol < 0.03 (<0.03) % 02/20/18 02/21/18 02/21/18 Range/Units 22:35 05:05 05:05 WBC 10.8 (4.5-12.0) X10-3/uL RBC 4.14 (3.23-5.20) x10(6)uL Hgb 14.0 (11.5-15.5) g/dL Hct 40.1 (30.0-51.3) % MCV 96.9 H (80-96) fL MCH 33.8 H (27.7-33.6) pg MCHC 34.9 (32.2-35.4) g/dL RDW 11.4 L (11.5-15.5) % Plt Count 334 (125-369) X10(3)uL MPV 7.6 (7.4-10.4) fL Neut % (Auto) 78.3 (46-82) % Lymph % (Auto) 15.2 (13-37) % [place] % (Auto) 5.1 (4-12) % Eos % (Auto) 0 L (1.0-5.0) % Baso % (Auto) 1 (0-2) % Neut # (Auto) 8.6 H (1.6-8.3) # Lymph # (Auto) 1.6 (0.6-5.0) # [place] # (Auto) 0.5 (0.0-1.3) # Eos # (Auto) 0.0 (0.0-0.8) # Baso # (Auto) 0.1 (0.0-0.2) # Sodium 141 (135-145) mmol/L Potassium 4.0 (3.5-5.3) mmol/L Chloride 105 (100-110) mmol/L Carbon Dioxide 28 (21-32) mmol/L BUN 22 H (7-18) mg/dL Creatinine 0.8 (0.55-1.02) mg/dL Est Cr Clr Drug Dosing 88.18 Estimated GFR (MDRD) > 60 (>60) BUN/Creatinine Ratio 27.5 H (9-20) Glucose 122 H (80-116) mg/dL Calcium 8.5 L (8.6-10.2) mg/dL Total Bilirubin (0.1-1.3) mg/dL AST (5-25) IU/L ALT (12-36) U/L Alkaline Phosphatase (56-112) IU/L Total Protein (6.0-8.0) g/dL Albumin (3.5-5.2) g/dL Globulin g/dL Albumin/Globulin Ratio Salicylates 5.7 (2.8-20.0) mg/dL Urine Opiates Screen (NEGATIVE) Ur Oxycodone Screen (NEGATIVE) Ur Propoxyphene Screen (NEGATIVE) Acetaminophen (10-30) ug/mL Ur Barbituates Screen (NEGATIVE) Ur Tricyclics Screen (NEGATIVE) Ur Phencyclidine Scrn (NEGATIVE) Ur Amphetamine Screen (NEGATIVE) Urine MDMA Screen (NEGATIVE) U Benzodiazepines Scrn (NEGATIVE) U Cocaine Metab Screen (NEGATIVE) U Marijuana (THC) Screen (NEGATIVE) Ethyl Alcohol (<0.03) % 02/21/18 Range/Units 09:10 WBC (4.5-12.0) X10-3/uL RBC (3.23-5.20) x10(6)uL Hgb (11.5-15.5) g/dL Hct (30.0-51.3) % MCV (80-96) fL MCH (27.7-33.6) pg MCHC (32.2-35.4) g/dL RDW (11.5-15.5) % Plt Count (125-369) X10(3)uL MPV (7.4-10.4) fL Neut % (Auto) (46-82) % Lymph % (Auto) (13-37) % [place] % (Auto) (4-12) % Eos % (Auto) (1.0-5.0) % Baso % (Auto) (0-2) % Neut # (Auto) (1.6-8.3) # Lymph # (Auto) (0.6-5.0) # [place] # (Auto) (0.0-1.3) # Eos # (Auto) (0.0-0.8) # Baso # (Auto) (0.0-0.2) # Sodium (135-145) mmol/L Potassium (3.5-5.3) mmol/L Chloride (100-110) mmol/L Carbon Dioxide (21-32) mmol/L BUN (7-18) mg/dL Creatinine (0.55-1.02) mg/dL Est Cr Clr Drug Dosing Estimated GFR (MDRD) (>60) BUN/Creatinine Ratio (9-20) Glucose (80-116) mg/dL Calcium (8.6-10.2) mg/dL Total Bilirubin (0.1-1.3) mg/dL AST (5-25) IU/L ALT (12-36) U/L Alkaline Phosphatase (56-112) IU/L Total Protein (6.0-8.0) g/dL Albumin (3.5-5.2) g/dL Globulin g/dL Albumin/Globulin Ratio Salicylates (2.8-20.0) mg/dL Urine Opiates Screen Negative (NEGATIVE) Ur Oxycodone Screen Negative (NEGATIVE) Ur Propoxyphene Screen Negative (NEGATIVE) Acetaminophen (10-30) ug/mL Ur Barbituates Screen Negative (NEGATIVE) Ur Tricyclics Screen Negative (NEGATIVE) Ur Phencyclidine Scrn Negative (NEGATIVE) Ur Amphetamine Screen Negative (NEGATIVE) Urine MDMA Screen Negative (NEGATIVE) U Benzodiazepines Scrn Negative (NEGATIVE) U Cocaine Metab Screen Negative (NEGATIVE) U Marijuana (THC) Screen Negative (NEGATIVE) Ethyl Alcohol (<0.03) % Davi Results Last 24 Hours: Microbiology 02/21/18 06:40 Gastric Occult Blood - Final Gastric Aspirate Med Orders - Current: Current Medications Enoxaparin Sodium (Lovenox) 40 mg SUBCUT Q24H [facility] Last Admin: 02/21/18 08:52 Dose: 40 mg Nicotine (Habitrol) 21 mg TRDERM DAILY [facility] Last Admin: 02/21/18 17:45 Dose: 21 mg Ondansetron HCl (Zofran) 8 mg IVPUSH Q6H PRN PRN Reason: Nausea/Vomiting Last Admin: 02/21/18 10:15 Dose: 8 mg Discontinued Medications Sodium Chloride (Normal Saline) 1,000 mls @ 500 mls/hr IV ASDIRECTED [facility] Last Admin: 02/21/18 00:25 Dose: 500 mls/hr Sodium Chloride (Normal Saline) 1,000 mls @ 100 mls/hr IV ASDIRECTED [facility] Stop: 02/21/18 17:15 Last Admin: 02/21/18 14:17 Dose: 100 mls/hr Metoprolol Tartrate (Lopressor) 5 mg IVPUSH ONETIME ONE Stop: 02/21/18 03:42 Last Admin: 02/21/18 03:45 Dose: 5 mg Metoprolol Tartrate (Lopressor) 5 mg IVPUSH ONETIME ONE Stop: 02/21/18 04:55 Last Admin: 02/21/18 06:40 Dose: Not Given Ondansetron HCl (Zofran) 4 mg IVPUSH ONETIME ONE Stop: 02/21/18 04:53 Last Admin: 02/21/18 04:57 Dose: 4 mg Pantoprazole Sodium (Protonix Iv) 40 mg IVPUSH ONETIME ONE Stop: 02/21/18 04:54 Last Admin: 02/21/18 04:57 Dose: 40 mg - Exam General: Alert, Oriented, Cooperative Psy/Mental Status: Alert, Agitated, Other (Flight of ideas she's talking about every different subject. Very hyper and full of energy and appears to be very stressed.) - Problem List & Annotations (1) Overdose SNOMED Code(s): 15805369 Code(s): T50.901A - POISONING BY UNSP DRUG/MEDS/BIOL SUBST, ACCIDENTAL, INIT Status: Acute Current Visit: Yes (2) Alcohol intoxication SNOMED Code(s): 36443835 Code(s): F10.929 - ALCOHOL USE, UNSPECIFIED WITH INTOXICATION, UNSPECIFIED Status: Acute Current Visit: Yes (3) Dayami Status: Acute Current Visit: Yes - Problem List Review Problem List Initiated/Reviewed/Updated: Yes - My Orders Last 24 Hours: My Active Orders 02/21/18 17:30 Nicotine [Habitrol] 21 mg TRDERM DAILY 02/21/18 Dinner Regular Diet [DIET] - Plan Plan:: 1. Transfer to [facility] if they will take her. 2. Restart baclofen tonight per request of poison control to prevent withdrawals or seizures.
[2018-02-21] MEDS ORDERED: Baclofen 10 MG Tab PO ONE (19:41)
[2018-02-21 20:44] VITALS: BP 154/90
--- NOTE | 2018-02-22 09:43 | PCM.DCSUM1 ---
Discharge Summary - Hospital Course Free Text/Narrative:: Hospital course-patient was admitted to the ICU and observed. Patient woke up and was very manic and we determined she should go to the psychiatric facility. [facility] accepted her and she'll be transferred by car. Poison control called and they felt we should restart her baclofen so she has a seizure withdrawal so we restarted in the evening. He was transferred by car per her significant other. Brief History: This a 42-year-old female patient that's been admitted for overdose. Right now she responds to voice only by morning. She will not wake up and talk. History is per ER doctor and ER nurse. Apparently she came in with her boyfriend shouting yesterday. She had taken 28 baclofen. She received a prescription for 120 and there is 92 gone apparently according to the nurse. She also drank a large bottle of vodka. And she was here she was less responsive and only could be aroused and then she'll wake up and vomited. Wording to the nurse she has a history of anxiety depression. I do know this patient from the past. I have [facility] chart open which she has some medical records she sees a pain clinic. She also now sees Trace Mcelroy at [facility]. Does have a long history of thoracic back pain. - Discharge Data Discharge Date: 02/21/18 Discharge Disposition: DC/Tfer to Psych Hosp[facility]Unit [facility] Condition: Fair - Discharge Diagnosis/Problem(s) (1) Overdose SNOMED Code(s): 48819053 ICD Code: T50.901A - POISONING BY UNSP DRUG/MEDS/BIOL SUBST, ACCIDENTAL, INIT Status: Acute (2) Alcohol intoxication SNOMED Code(s): 71981964 ICD Code: F10.929 - ALCOHOL USE, UNSPECIFIED WITH INTOXICATION, UNSPECIFIED Status: Acute (3) Dayami Status: Acute - Patient Instructions Other/Special Instructions: Discharge--Trace guido to take patient per private vehicle to per verbal order of Dr Meehan on rounds this evening. - Discharge Plan Home Medications: Home Meds . [Unable to Verify Home Med List] 02/21/18 [History] Forms: ED Department Discharge Referrals: Trace Mcelroy PA [Primary Care Provider] - - Discharge Summary/Plan Comment DC Time >30 min.: No - Patient Data Vitals - Most Recent: Last Vital Signs Temp 97.4 F 02/21/18 14:57 Pulse 93 02/21/18 16:00 Resp 20 02/21/18 20:00 BP 154/90 H 02/21/18 20:00 Pulse Ox 99 02/21/18 20:00 Weight - Most Recent: 142 lb 10.225 oz I&O - Last 24 hours: Intake & Output 02/21/18 02/22/18 02/22/18 22:59 06:59 14:59 Intake Total 800 Balance 800 Lab Results - Last 24 hrs: Laboratory Results - last 24 hr 02/21/18 Range/Units 09:10 Urine Opiates Screen Negative (NEGATIVE) Ur Oxycodone Screen Negative (NEGATIVE) Ur Propoxyphene Screen Negative (NEGATIVE) Ur Barbituates Screen Negative (NEGATIVE) Ur Tricyclics Screen Negative (NEGATIVE) Ur Phencyclidine Scrn Negative (NEGATIVE) Ur Amphetamine Screen Negative (NEGATIVE) Urine MDMA Screen Negative (NEGATIVE) U Benzodiazepines Scrn Negative (NEGATIVE) U Cocaine Metab Screen Negative (NEGATIVE) U Marijuana (THC) Screen Negative (NEGATIVE) FLY Results - Last 24 hrs: Microbiology 02/21/18 06:40 Gastric Occult Blood - Final Gastric Aspirate Med Orders - Current: Current Medications Discontinued Medications Baclofen (Lioresal) 20 mg PO ONETIME ONE Stop: 02/21/18 19:42 Last Admin: 02/21/18 20:02 Dose: 20 mg Enoxaparin Sodium (Lovenox) 40 mg SUBCUT Q24H [facility] Last Admin: 02/21/18 08:52 Dose: 40 mg Sodium Chloride (Normal Saline) 1,000 mls @ 500 mls/hr IV ASDIRECTED [facility] Last Admin: 02/21/18 00:25 Dose: 500 mls/hr Sodium Chloride (Normal Saline) 1,000 mls @ 100 mls/hr IV ASDIRECTED [facility] Stop: 02/21/18 17:15 Last Admin: 02/21/18 14:17 Dose: 100 mls/hr Metoprolol Tartrate (Lopressor) 5 mg IVPUSH ONETIME ONE Stop: 02/21/18 03:42 Last Admin: 02/21/18 03:45 Dose: 5 mg Metoprolol Tartrate (Lopressor) 5 mg IVPUSH ONETIME ONE Stop: 02/21/18 04:55 Last Admin: 02/21/18 06:40 Dose: Not Given Nicotine (Habitrol) 21 mg TRDERM DAILY [facility] Last Admin: 02/21/18 17:45 Dose: 21 mg Ondansetron HCl (Zofran) 4 mg IVPUSH ONETIME ONE Stop: 02/21/18 04:53 Last Admin: 02/21/18 04:57 Dose: 4 mg Ondansetron HCl (Zofran) 8 mg IVPUSH Q6H PRN PRN Reason: Nausea/Vomiting Last Admin: 02/21/18 10:15 Dose: 8 mg Pantoprazole Sodium (Protonix Iv) 40 mg IVPUSH ONETIME ONE Stop: 02/21/18 04:54 Last Admin: 02/21/18 04:57 Dose: 40 mg
--- NOTE | 2018-02-22 12:00 | ER ---
DATE SEEN: 02/20/2018 HISTORY OF PRESENT ILLNESS: This 42-year-old woman has multiplicity of problems, chronic back pain, degenerative intervertebral disk, intussusception, duodenitis, polycystic ovary, tension headaches, previous TAHBSO, cholecystectomy, tubal ligations, breast implants, COPD, GERD, depression and anxiety, presents this evening after an overdose. She apparently had an argument with her boyfriend (of several years) and they have an intermittent margaret relationship according to the boyfriend. She was upset and took the medication, was talking to her friend and the friend called the boy friend's work and he went home and found her sleepy with overdose. She had a new prescription for baclofen 120 tablets of these 28 tablets were missing, 92 were left in the pillbox. It was considered that the patient may have taken this an hour and a half before arrival to the hospital. The patient has a history of using alcohol, drank(large bottle of vodka) according to the boy friend - significant other. The patient was seen on arrival. Her status was immediately discussed with Poison Control and they noted side effect of medicines, sedation, bradycardia, hypotension. Usually the peak effect of baclofen is 2 hours, may last up to 4 hours. Primary survey: The patient's airway is patent. She does not have any glottal sounds or snoring. Breathing is bilateral air exchange in lungs. Going back to airways, she is protecting her airway. Gag is in place. Blood pressure 156/110, heart rate 109, respirations 22 at 2355 hours. Capillary refill is normal. No cyanosis. Lips are not pale. Eyes: Opens eyes to pain. Odor: total body exposure. Dermal: No rash, purpura, or petechiae. No bruising. Total Glascow score 10. Secondary survey: Blood pressure 151/96, pulse rate was 82, respirations 18. CONSTITUTIONAL/GENERAL: The patient requires sternal rub to arouse. Once this happens, she starts vomiting. She vomits green succus entericus. No blood noted. Hemoccult pending. She probably goes back to somnolence. Pupils are fixed 3 mm. TMs negative. Pharynx without abnormality. Gag is present. NECK: No bruits. No masses. No thyromegaly. LUNGS: Clear to auscultation. No rales, rhonchi, or wheezes. HEART: S1 and S2. No murmur. Regular rate and rhythm. Mild sinus tachycardia. ABDOMEN: Nontender. Bowel sounds present. EXTREMITIES: Without edema. Deep tendon reflexes hypoactive in upper and lower extremities. NEURO: Cranial nerves: Does not follow commands, but she has fixed pupils. She has truncal ataxia and has almost a motion and she falls to the side. If I raise her hand, will fall and hit her face. ASSESSMENT: Baclofen overdose, also alcohol intoxication, depression, personality disorder, chronic obstructive pulmonary disease, asthma, gastroesophageal reflux disease, previous history of intussusception, cholecystectomy, ADDISON/BSO, polycystic ovarian fibroids, dysfunctional uterine bleeding, anxiety and depression, and suicidal behavior. The patient admitted to ICU after a fall in the ED. It is presumed that she would become more alert and arousable after having been in the ER for 4 to 8 hours, however she has been sitting up. Mild truncal ataxia, requires sternal rub to arouse. When she is aroused, she vomits green emesis and then goes back to sleep, but pupils no longer fixed at 3 mm, they go down from 3 to 2. No evidence for aspiration. No evidence for myocardial ischemia. PLAN: At present, I did not perform a CT of the head, but is status CT pending. The patient being admitted to ICU. The patient is on IV 1000 mL normal saline. No other medications given to the patient. Has been observed in ED. She has been somnolent most of the time, but arousable with sternal rub. Status to be discussed with Dr. Meehan once he arrives this morning for rounds. The patient is seen on arrival. /[id number] MELE/TISH
== END 2018-02-21 20:30 | DRG 918 ==
LOC: FB.ED 21:48 → FB.ICU 02-21 07:01
PROVIDERS: ADMIT Family Medicine; ATTEND Family Medicine
DX: T42.8X1A Poisoning by antiparkinsonism drugs and other central muscle-tone depressants, accidental (unintentional), initial encounter (principal); F30.9 Manic episode, unspecified; Y92.009 Unspecified place in unspecified non-institutional (private) residence as the place of occurrence of the external cause; F10.929 Alcohol use, unspecified with intoxication, unspecified; I10 Essential (primary) hypertension; F41.9 Anxiety disorder, unspecified; M54.6 Pain in thoracic spine; G89.29 Other chronic pain; K21.9 Gastro-esophageal reflux disease without esophagitis; F17.210 Nicotine dependence, cigarettes, uncomplicated; Y90.0 Blood alcohol level of less than 20 mg/100 ml
CPT/HCPCS: 36415; 80048; 80053; 80305; 82271; 85025; 93005; 96361; 96374; 96375; 99284; A9270-GY; C9113; G0480; J1650; J2405; J3490; J7040

== ENCOUNTER 2018-04-30 04:55 | Emergency (ER) | payer MEDICAID ==
[2018-04-30] MEDS ORDERED: LORazepam 1 MG Tab PO ONE (05:47)
--- NOTE | 2018-04-30 05:53 | EDM.PDOC ---
ED HPI GENERAL MEDICAL PROBLEM - General Chief Complaint: General Stated Complaint: HBP/DIZZINESS Time Seen by Provider: 04/30/18 05:30 Source of Information: Reports: Patient, Old Records History Limitations: Reports: No Limitations - History of Present Illness INITIAL COMMENTS - FREE TEXT/NARRATIVE: Christin comes into [facility] ED with concerns for HBP, dizziness, and malaise. She works as a [employer]CH[employer] at [employer] and is managed for chronic degenerative disc disorder. Her BP 160/105 this early am was a concern to her. She has not been managed for HBP in the past. Her current BP 143/90, VR 77. There is no headache , chest pain, SOB, change in speech or coordination. - Related Data Allergies Allergy/AdvReac Type Severity Reaction Status Date / Time No Known Allergies Allergy Verified 04/30/18 05:06 Home Meds: Home Meds Baclofen 10 mg PO QID 04/30/18 [History] Gabapentin [Neurontin] 600 mg PO TID 04/30/18 [History] Indomethacin 50 mg PO BID 04/30/18 [History] Past Medical History HEENT History: Reports: Allergic Rhinitis, Sinusitis Other HEENT History: Pt has been diagnosed with Sinusitis a couple times since May 2017. Cardiovascular History: Reports: Hypertension Respiratory History: Reports: Asthma, COPD Gastrointestinal History: Reports: GERD, Other (See Below) Other Gastrointestinal History: intussuception Genitourinary History: Reports: None BEADER TENDER History: Reports: Dysfunctional Uterine Bleeding, Fibroids, Polycystic Ovaries, Other BEADER TENDER History: ADDISON, LSO, CYSTOSCOPY, Musculoskeletal History: Reports: Back Pain, Chronic, Other (See Below) Other Musculoskeletal History: degenerative thoracic intervertebral disc Neurological History: Reports: None Psychiatric History: Reports: Anxiety, Depression Endocrine/Metabolic History: Reports: None Hematologic History: Reports: None Immunologic History: Reports: None Oncologic (Cancer) History: Reports: None Dermatologic History: Reports: None - Infectious Disease History Infectious Disease History: Reports: Chicken Pox, Measles - Past Surgical History Head Surgeries/Procedures: Reports: None Female Surgical History: Reports: Breast Implant, Hysterectomy, Salpingo- Oophorectomy, Tubal Ligation, Other (See Below) Social & Family History - Family History Family Medical History: Noncontributory - Tobacco Use Smoking Status *Q: Current Every Day Smoker Years of Tobacco use: 20 Packs/Tins Daily: 1 - Caffeine Use Caffeine Use: Reports: Soda, Tea - Recreational Drug Use Recreational Drug Use: No ED ROS GENERAL - Review of Systems Review Of Systems: See Below Constitutional: Reports: No Symptoms HEENT: Reports: No Symptoms Respiratory: Reports: No Symptoms Cardiovascular: Reports: Lightheadedness Endocrine: Reports: No Symptoms GI/Abdominal: Reports: No Symptoms : Reports: No Symptoms Musculoskeletal: Reports: Back Pain, Muscle Stiffness Skin: Reports: No Symptoms Neurological: Reports: Dizziness Psychiatric: Reports: No Symptoms Hematologic/Lymphatic: Reports: No Symptoms Immunologic: Reports: No Symptoms ED EXAM, GENERAL - Physical Exam Exam: See Below Exam Limited By: No Limitations General Appearance: Alert, WD/WN, No Apparent Distress, Anxious Eye Exam: Bilateral Eye: EOMI, Normal Inspection, PERRL Ears: Normal External Exam Nose: Normal Inspection Throat/Mouth: Normal Inspection, Normal Lips, Normal Teeth, Normal Oropharynx, Normal Voice Head: Normocephalic Neck: Normal Inspection, Supple, Non-Tender, Full Range of Motion Respiratory/Chest: Lungs Clear, Normal Breath Sounds Cardiovascular: Regular Rate, Rhythm, No Murmur GI/Abdominal: Normal Bowel Sounds, Soft, Non-Tender, No Organomegaly, No Distention, No Mass, Pelvis Stable (Female) Exam: Deferred Rectal (Female) Exam: Deferred Back Exam: Normal Inspection Extremities: Normal Inspection, Normal Range of Motion, Non-Tender Neurological: Alert, Oriented, CN II-XII Intact, Normal Cognition, No Motor/ Sensory Deficits Psychiatric: Normal Affect, Anxious Skin Exam: Warm, Dry, Intact, Normal Color Lymphatic: No Adenopathy Course - Vital Signs Text/Narrative:: Christin was observed over the next hour, and her VS gradually improved. She appeared anxious, and Ativan 1 mg po was administered. She was asx at time of discharge. Last Recorded V/S: Last Vital Signs Temp 35.8 C 04/30/18 05:00 Pulse 85 04/30/18 06:52 Resp 18 04/30/18 06:52 BP 138/97 H 04/30/18 06:52 Pulse Ox 99 04/30/18 06:52 - Orders/Labs/Meds Meds: Medications Discontinued Medications Generic Name Dose Route Start Last Admin Trade Name Freq PRN Reason Stop Dose Admin Lorazepam 1 mg 04/30/18 05:47 04/30/18 05:51 Ativan PO 04/30/18 05:48 1 mg ONETIME ONE Administration Departure - Departure Time of Disposition: 07:00 Disposition: Home, Self-Care 01 Condition: Good Clinical Impression: Elevated blood pressure reading - Discharge Information *PRESCRIPTION DRUG MONITORING PROGRAM REVIEWED*: Not Applicable *COPY OF PRESCRIPTION DRUG MONITORING REPORT IN PATIENT DIVYA: Not Applicable Instructions: Panic Attack, Preventing Hypertension Referrals: Trace Mcelroy PA [Primary Care Provider] - Forms: ED Department Discharge Additional Instructions: Rest and Hydrate. Follow up with Primary Care Provider as needed. - Problem List & Annotations (1) Elevated blood pressure reading SNOMED Code(s): 40223578 Code(s): R03.0 - ELEVATED BLOOD-PRESSURE READING, W/O DIAGNOSIS OF HTN Status: Acute Annotation/Comment:: Patient had isolated elevations of BP, significance unknown. I suggested monitoring at work or at home, and follow up with PCP. - Problem List Review Problem List Initiated/Reviewed/Updated: Yes - Assessment/Plan Plan: Follow up with PCP.
[2018-04-30 06:53] VITALS: BP 138/97
== END 2018-04-30 06:58 | disposition home or self-care (01) ==
LOC: FB.ED 04:55
DX: I10 Essential (primary) hypertension (principal); J44.9 Chronic obstructive pulmonary disease, unspecified; F17.210 Nicotine dependence, cigarettes, uncomplicated; Z79.899 Other long term (current) drug therapy
CPT/HCPCS: 99283; A9270

== ENCOUNTER 2019-05-23 02:15 | Emergency (ER) | payer BC, MEDICAID ==
[2019-05-23] MEDS ORDERED: Sodium Chloride 0.9% 1,000 ML IV ONE (03:49)
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
[2019-05-23 07:30] VITALS: BP 113/80; PULSE 100
== END 2019-05-23 05:09 | disposition home or self-care (01) ==
LOC: FB.ED 02:15
DX: E86.0 Dehydration (principal); J44.9 Chronic obstructive pulmonary disease, unspecified; F41.9 Anxiety disorder, unspecified; F32.9 Major depressive disorder, single episode, unspecified; I10 Essential (primary) hypertension; F17.210 Nicotine dependence, cigarettes, uncomplicated; Z79.899 Other long term (current) drug therapy
CPT/HCPCS: 36415; 80053; 83735; 84484; 85025; 93005; 96360; 99284; G0480; J7030; 93010; 99283

== ENCOUNTER 2019-06-29 07:38 | Emergency (ER) | payer OTHER, MEDICAID ==
--- NOTE | 2019-06-29 08:00 | EDM.PDOC ---
ED HPI GENERAL MEDICAL PROBLEM - General Chief Complaint: Lower Extremity Injury/Pain Stated Complaint: L KNEE PAIN Time Seen by Provider: 06/29/19 07:38 Source of Information: Reports: Patient History Limitations: Reports: No Limitations - History of Present Illness INITIAL COMMENTS - FREE TEXT/NARRATIVE: 43 y.o.w.f came to the ed because she twisted and fell onto her left knee last night. Pt has pain by putting weight onto her left leg. Pt does not remember the mech of injury. No N/V/D or any other acute med issues. BP 106/83 RR 18 Pulse ox 97% on RA Temp 36.8 pulse 76 Onset Date: 06/28/19 Onset Time: 21:00 Duration: Hour(s): Location: Reports: Lower Extremity, Left Quality: Reports: Ache, Dull, Pressure Severity: Moderate Improves with: Reports: Rest Worsens with: Reports: Movement Context: Reports: Trauma Associated Symptoms: Reports: No Other Symptoms - Related Data Allergies Allergy/AdvReac Type Severity Reaction Status Date / Time No Known Allergies Allergy Verified 04/30/18 05:06 Home Meds: Home Meds Baclofen 10 mg PO QID 04/30/18 [History] Gabapentin [Neurontin] 600 mg PO TID 04/30/18 [History] Indomethacin 50 mg PO BID 04/30/18 [History] Past Medical History HEENT History: Reports: Allergic Rhinitis, Sinusitis Other HEENT History: Pt has been diagnosed with Sinusitis a couple times since May 2017. 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, Musculoskeletal History: Reports: Back Pain, Chronic, Other (See Below) Other Musculoskeletal History: degenerative thoracic intervertebral disc Neurological History: Reports: None Psychiatric History: Reports: Anxiety, Depression Endocrine/Metabolic History: Reports: None Hematologic History: Reports: None Immunologic History: Reports: None Oncologic (Cancer) History: Reports: None Dermatologic History: Reports: None - Infectious Disease History Infectious Disease History: Reports: Chicken Pox, Measles - Past Surgical History Head Surgeries/Procedures: Reports: None Female Surgical History: Reports: Breast Implant, Hysterectomy, Salpingo- Oophorectomy, Tubal Ligation, Other (See Below) Social & Family History - Family History Family Medical History: Noncontributory - Caffeine Use Caffeine Use: Reports: Soda, Tea Review of Systems - Review of Systems Review Of Systems: See Below Constitutional: Reports: No Symptoms Eyes: Reports: No Symptoms Ears: Reports: No Symptoms Nose: Reports: No Symptoms Mouth/Throat: Reports: No Symptoms Respiratory: Reports: No Symptoms Cardiovascular: Reports: No Symptoms GI/Abdominal: Reports: No Symptoms Genitourinary: Reports: No Symptoms Musculoskeletal: Reports: Other (left knee pain) Skin: Reports: No Symptoms Neurological: Reports: No Symptoms Psychiatric: Reports: No Symptoms ED EXAM, GENERAL - Physical Exam Exam: See Below Exam Limited By: No Limitations General Appearance: Alert, WD/WN, Mild Distress Eye Exam: Bilateral Eye: Normal Inspection Ears: Normal External Exam Ear Exam: Bilateral Ear: Auricle Normal Nose: Normal Inspection, Normal Mucosa, No Blood Throat/Mouth: Normal Lips, Normal Voice, No Airway Compromise Head: Atraumatic, Normocephalic Neck: Normal Inspection, Supple, Non-Tender Respiratory/Chest: No Respiratory Distress Cardiovascular: Normal Peripheral Pulses Peripheral Pulses: 1+: Carotid (R) GI/Abdominal: Normal Bowel Sounds, Soft (Female) Exam: Deferred Rectal (Female) Exam: Deferred Back Exam: Normal Inspection Extremities: Limited Range of Motion (left knee) Neurological: Alert, Oriented, CN II-XII Intact, Normal Cognition Psychiatric: Normal Affect, Normal Mood Skin Exam: Warm, Dry, Intact, Normal Color Lymphatic: No Adenopathy Course - Vital Signs Text/Narrative:: 43 y.o.w.f came to the ed because she twisted and fell onto her left knee last night. Pt has pain by putting weight onto her left leg. [facility] No N/V/D or any other acute med issues. BP 106/83 RR 18 Pulse ox 97% on RA Temp 36.8 pulse 76 PE: WNWD W F with left knee discomfort after a fall Imaging: Left Knee 3 views: NAD Impression: Left knee sprain Tx: Ice, Toradol, knee immobilizer Reexam: Improved Plan: D/C with instructions Last Recorded V/S: Last Vital Signs Temp 36.8 C 06/29/19 07:38 Pulse 80 06/29/19 07:38 Resp 18 06/29/19 07:38 BP 106/83 06/29/19 07:38 Pulse Ox 97 06/29/19 07:38 - Orders/Labs/Meds Orders: Active Orders 24 hr Category Date Time Status Cooling Warming Measures [RC] ASDIRECTED Care 06/29/19 07:57 Active Knee 3V Lt [CR] Stat Exams 06/29/19 07:57 Taken Ice Therapy [OM.PC] Routine Oth 06/29/19 07:57 Ordered Meds: Medications Discontinued Medications Generic Name Dose Route Start Last Admin Trade Name Francisco Javier PRN Reason Stop Dose Admin Ketorolac Tromethamine 60 mg 06/29/19 08:14 06/29/19 08:40 Toradol IM 06/29/19 08:15 60 mg ONETIME ONE Administration Departure - Departure Time of Disposition: 08:40 Disposition: Home, Self-Care 01 Condition: Good Clinical Impression: Left knee sprain Qualifiers: Encounter type: initial encounter Involved ligament of knee: other ligament Qualified Code(s): S83.8X2A - Sprain of other specified parts of left knee, initial encounter - Discharge Information Instructions: Knee Sprain, Adult, [id number], How to Use a Knee Immobilizer, [id number] Referrals: Trace Mcelroy PA [Primary Care Provider] - Terence Joe DO [Physician] - Forms: ED Department Discharge, ED Return to Work/School Form Additional Instructions: Rest, Ice and elevation, Motrin for pain, please use knee immobilizer as recommended, please f/u with your PMD/Ortho, come back if your symptoms get worse acutely. - My Orders Last 24 Hours: My Active Orders 06/29/19 07:57 Cooling Warming Measures [RC] ASDIRECTED Knee 3V Lt [CR] Stat Ice Therapy [OM.PC] Routine - Assessment/Plan Last 24 Hours: My Active Orders 06/29/19 07:57 Cooling Warming Measures [RC] ASDIRECTED Knee 3V Lt [CR] Stat Ice Therapy [OM.PC] Routine
[2019-06-29] MEDS ORDERED: Ketorolac 60 MG/2 ML SDV IM ONE (08:14)
[2019-06-29 08:28] VITALS: BP 106/83; PULSE 80
== END 2019-06-29 08:55 | disposition home or self-care (01) ==
LOC: FB.ED 07:38
DX: S83.8X2A Sprain of other specified parts of left knee, initial encounter (principal); I10 Essential (primary) hypertension; Z79.899 Other long term (current) drug therapy; W19.XXXA Unspecified fall, initial encounter
CPT/HCPCS: 73562; 96372; 99283; J1885

== ENCOUNTER 2019-11-14 22:45 | Emergency (ER) | payer BC, MEDICAID ==
--- NOTE | 2019-11-14 22:54 | EDM.PDOC ---
ED HPI GENERAL MEDICAL PROBLEM - General Stated Complaint: CHEST PAIN Time Seen by Provider: 11/14/19 22:51 Source of Information: Reports: Patient History Limitations: Reports: No Limitations - History of Present Illness INITIAL COMMENTS - FREE TEXT/NARRATIVE: 44-year-old female who reports onset of sharp pain along her left lower chest at approximately 10 PM when she was going to bed. She had felt well prior to this other than she has had a worsening of her chronic cough (she has COPD) over the past 2 weeks. She has had no increase in phlegm production. She has had no fever. With the pain, she also has had some nausea but no vomiting. She reports the pain varies anywhere from a 10/10 at its worst to a 6/10 at present. She did just recently have bilateral salpingo-oophorectomy that was an open procedure (this was 3 weeks ago) performed at [facility]. The pain is worse when she is lying down. Nothing really seems to make it better. There are no other associated signs or symptoms. There are no other modifying factors. Onset: Today (10 PM tonight.) Duration: Constant Location: Reports: Chest Quality: Reports: Sharp, Stabbing Severity: Moderate (to) Improves with: Reports: None Worsens with: Reports: Breathing, Other (Palpation. Lying down.), Movement Context: Reports: Other (As above) Associated Symptoms: Reports: Chest Pain, Shortness of Breath Treatments MANAGED CARE LIAISON: Reports: Other (see below) (Nothing) - Related Data Allergies Allergy/AdvReac Type Severity Reaction Status Date / Time varenicline [From Chantix] Allergy Manic Verified 11/15/19 04:53 Episode Home Meds: Home Meds Baclofen 10 mg PO QID 04/30/18 [History] Gabapentin [Neurontin] 600 mg PO TID 04/30/18 [History] Indomethacin 50 mg PO BID 04/30/18 [History] traZODone HCl [Trazodone HCl] 100 mg PO BEDTIME 11/15/19 [History] Past Medical History HEENT History: Reports: Allergic Rhinitis, Sinusitis Other HEENT History: Pt has been diagnosed with Sinusitis a couple times since May 2017. 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, Musculoskeletal History: Reports: Back Pain, Chronic, Other (See Below) Other Musculoskeletal History: degenerative thoracic intervertebral disc Psychiatric History: Reports: Anxiety, Depression - Infectious Disease History Infectious Disease History: Reports: Chicken Pox, Measles - Past Surgical History GI Surgical History: Reports: Cholecystectomy Female Surgical History: Reports: Breast Implant, Hysterectomy, Salpingo- Oophorectomy, Tubal Ligation, Other (See Below) Social & Family History - Tobacco Use Smoking Status *Q: Current Every Day Smoker - Caffeine Use Caffeine Use: Reports: Soda, Tea - Alcohol Use Alcohol Use History: Yes Alcohol Use Frequency: Socially - Living Situation & Occupation Occupation: Employed (Works at [employer]) ED ROS GENERAL - Review of Systems Review Of Systems: See Below Constitutional: Reports: No Symptoms HEENT: Reports: Other (Some nasal congestion) Respiratory: Reports: Pleuritic Chest Pain, Cough Cardiovascular: Reports: Chest Pain GI/Abdominal: Reports: Nausea. Denies: Vomiting : Reports: No Symptoms Musculoskeletal: Reports: No Symptoms Skin: Reports: No Symptoms Neurological: Reports: No Symptoms Hematologic/Lymphatic: Reports: No Symptoms Immunologic: Reports: No Symptoms ED EXAM, GENERAL - Physical Exam Exam: See Below Exam Limited By: No Limitations General Appearance: Alert, WD/WN, Moderate Distress Eye Exam: Bilateral Eye: EOMI, Normal Inspection, PERRL Ears: Normal External Exam, Hearing Grossly Normal Ear Exam: Bilateral Ear: Auricle Normal Nose: No Blood, Nasal Drainage (Slight, with mucosal edema) Throat/Mouth: Normal Inspection, Normal Lips, Normal Oropharynx, Normal Voice, No Airway Compromise Head: Atraumatic, Normocephalic Neck: Normal Inspection, Supple, Non-Tender, Full Range of Motion Respiratory/Chest: No Respiratory Distress, Lungs Clear, Normal Breath Sounds, No Accessory Muscle Use, Other (Tender over left anterior, lower chest below the breast.) Peripheral Pulses: 2+: Radial (L), Radial (R), Dorsalis Pedis (L), Dorsalis Pedis (R) GI/Abdominal: Normal Bowel Sounds, Soft, Non-Tender, No Mass Extremities: Normal Inspection, Normal Range of Motion, Non-Tender, No Pedal Edema, Normal Capillary Refill Neurological: Alert, Oriented, CN II-XII Intact, Normal Cognition, No Motor/ Sensory Deficits Skin Exam: Warm, Dry, Intact, Normal Color, No Rash EKG INTERPRETATION EKG Date: 11/14/19 Time: 22:49 Rhythm: NSR Rate (Beats/Min): 93 Sullivan: Normal P-Wave: Present QRS: Normal ST-T: Other (Poor R-wave progression with biphasic T waves in V2) QT: Prolonged (QTc) Comparison: Other: (There are biphasic T waves in V2 which were not present on EKG from 05/23/2019 but this may be due to lead placement.) Course - Vital Signs Last Recorded V/S: Last Vital Signs Temp 36.6 C 11/14/19 22:50 Pulse 88 11/14/19 22:50 Resp 18 11/14/19 22:50 BP 137/90 11/14/19 22:50 Pulse Ox 96 11/14/19 22:50 - Orders/Labs/Meds Orders: Active Orders 24 hr Category Date Time Status EKG Documentation Completion [RC] ASDIRECTED Care 11/14/19 23:07 Active Peripheral IV Insertion Adult [OM.PC] Routine Oth 11/14/19 23:06 Ordered EKG 12 Lead [EK] Routine Ther 11/14/19 23:07 Ordered Meds: Medications Discontinued Medications Generic Name Dose Route Start Last Admin Trade Name Francisco Javier PRN Reason Stop Dose Admin Sodium Chloride 500 mls @ 999 mls/hr 11/14/19 23:07 Normal Saline IV 11/14/19 23:37 .BOLUS ONE Ketorolac Tromethamine 30 mg 11/14/19 23:07 Toradol IVPUSH 11/14/19 23:08 ONETIME ONE Sodium Chloride 10 ml 11/14/19 23:06 Saline Flush FLUSH ASDIRECTED PRN Keep Vein Open - Re-Assessments/Exams Free Text/Narrative Re-Assessment/Exam: 11/14/19 23:25: The nursing staff was attempting to start an IV for the patient and administer pain medication and came blood for testing. Apparently initial IV start was missed and the patient got very upset about this and reported that she was leaving to the nursing staff. The risk associated with this were explained to her by the nursing staff, however, the patient still wished to leave and is doing so AGAINST MEDICAL ADVICE. I was attending something else at this time and the patient would not wait for me to come back discuss the matter with her. Departure - Departure Time of Disposition: 23:21 Disposition: Against Medical Advice 07 Condition: Undetermined Clinical Impression: Pleuritic chest pain Referrals: PCP,None [Primary Care Provider] - Forms: ED Department Discharge Sepsis Event Note - Focused Exam Vital Signs: Vital Signs Temp Pulse Resp BP Pulse Ox 11/14/19 22:50 36.6 C 88 18 137/90 96 Date Exam was Performed: 11/15/19 Time Exam was Performed: 06:50 - My Orders Last 24 Hours: My Active Orders 11/14/19 23:06 Peripheral IV Insertion Adult [OM.PC] Routine 11/14/19 23:07 EKG Documentation Completion [RC] ASDIRECTED EKG 12 Lead [EK] Routine - Assessment/Plan Last 24 Hours: My Active Orders 11/14/19 23:06 Peripheral IV Insertion Adult [OM.PC] Routine 11/14/19 23:07 EKG Documentation Completion [RC] ASDIRECTED EKG 12 Lead [EK] Routine
[2019-11-14] MEDS ORDERED: Sodium Chloride 0.9% 10 ML Syringe FLUSH PRN (23:06)
[2019-11-14] MEDS ORDERED: Ketorolac 30 MG/ML SDV IVPUSH ONE (23:07)
[2019-11-14] MEDS ORDERED: Sodium Chloride 0.9% 500 ML IV ONE (23:07)
[2019-11-15 07:57] VITALS: BP 132/91
[2019-11-15 07:58] VITALS: PULSE 85
== END 2019-11-14 23:22 | disposition left against medical advice (07) ==
LOC: FB.ED 22:45
DX: R07.81 Pleurodynia (principal); I10 Essential (primary) hypertension; J44.9 Chronic obstructive pulmonary disease, unspecified; F41.9 Anxiety disorder, unspecified; F32.9 Major depressive disorder, single episode, unspecified; F17.200 Nicotine dependence, unspecified, uncomplicated; Z88.8 Allergy status to other drugs, medicaments and biological substances; Z79.899 Other long term (current) drug therapy; Z90.49 Acquired absence of other specified parts of digestive tract
CPT/HCPCS: 93005; 99285-25